=== PATIENT | male | born 1980 | race Caucasian/White ===

== ENCOUNTER 2020-11-15 13:38 | Inpatient (IN) | payer OTHER, SELFPAY ==
--- NOTE | ~2020-11-15 | XR_ITS ---
EXAMINATION: XR CHEST CLINICAL INFORMATION: Stroke symptoms COMPARISON: None TECHNIQUE: Frontal view of the chest was obtained. FINDINGS: No significant abnormality is noted involving the heart, lungs, mediastinum, bony thorax or soft tissues. XR/XR chest 1V IMPRESSION: Unremarkable examination.
--- NOTE | ~2020-11-15 | MR_ITS ---
EXAMINATION: MR BRAIN WITHOUT AND WITH CONTRAST CLINICAL INFORMATION: Question stroke. Slurred speech and facial droop. COMPARISON: Head CT from 11/15/2020. TECHNIQUE: Multiplanar, multisequence imaging of the brain was performed before and after the intravenous administration of 10 mL of Gadavist. FINDINGS: There is a focal triangular-shaped acute infarct in the anterior right basal ganglia and right paulson radiata. There is a small acute infarct posteriorly in the right paulson radiata at the same level. Small acute infarct visible in the posterior limb of the right internal capsule. Punctate acute infarcts visible in the posterior right parietal white matter. There are a few additional small acute infarcts in the right temporoparietal lobes. The ventricles are normal in size. No mass effect or midline shift is seen. No brain parenchymal signal abnormality is noted. No extra-axial fluid collections are seen. The brainstem and cerebellum are normal. On postcontrast imaging, there is no abnormal parenchymal or leptomeningeal enhancement. The gradient refocused acquisition demonstrates no pathologic magnetic susceptibility artifact to indicate underlying acute or chronic blood products. The craniovertebral junction, marrow signal, and midline structures are normal. The major intracranial flow voids at the level of the [place] of [place] are preserved. The dural venous sinus flow voids are maintained. The mastoid air cells and paranasal sinuses are well aerated. 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 No hemorrhagic conversion or large territorial infarction. No abnormal mass effect or pathologic enhancement. Imaging findings reported to Dr. Oliva at 8:58 PM on 11/15/2020.
--- NOTE | ~2020-11-15 | US_ITS ---
EXAMINATION: US VENOUS ULTRASOUND WITH DOPPLER LOWER EXTREMITY, BILATERAL CLINICAL INFORMATION: PFO on Echo COMPARISON: Venous Doppler lower extremity 06/30/2019, 11/06/2018 TECHNIQUE: Ultrasound of the deep veins is performed from the hip to the calf with compression sonography and color and pulse Doppler assessment. Spectral analysis with color-flow imaging is performed. FINDINGS: RIGHT: There is normal venous compression and respiratory variation and augmented flow. The visualized common femoral vein, superficial femoral vein, profunda femoral vein, popliteal vein, and the trifurcation region shows no evidence of deep venous thrombosis. There is no significant popliteal fossa cyst. LEFT: There is normal venous compression and respiratory variation and augmented flow. The visualized common femoral vein, superficial femoral vein, profunda femoral vein, popliteal vein, and the trifurcation region shows no evidence of deep venous thrombosis. There is no significant popliteal fossa cyst. If the patient's symptoms persist, followup ultrasound in 5 days 7 days might be of value to exclude proximal propagation from a non-visualized calf vein. US/US venous duplex LE BI IMPRESSION: No DVT demonstrated in the bilateral lower extremity.
--- NOTE | ~2020-11-15 | CT_ITS ---
EXAMINATION: CT ANGIOGRAM HEAD CT ANGIOGRAM NECK CLINICAL INFORMATION: Slurred speech. Left-sided facial droop. COMPARISON: CT head from 11/15/2020. TECHNIQUE: Initial noncontrast special needs nanny imaging of the head and neck was performed. Comparison is made with noncontrast head CT from earlier today. Test bolus sequences followed by intravenous administration 70 mL of Omnipaque 350. Helical imaging was performed in the axial plane from the aortic arch to the skull vertex. Delayed postcontrast imaging of the head was also performed. The data was processed at the manufacturing technologist's workstation for generation of MIP sequences. Angled MIPs and volume rendered reformatted images were also generated at an offline 3D workstation. Stenoses are assessed in accordance with NASCET criteria unless otherwise indicated. This CT examination was performed using dose optimization techniques as appropriate, variously including the following: *Automated exposure control. *Adjustment of mA and/or kV according to patient size (this includes techniques or standardized protocols for targeted exams where dose is matched to indication/reason for exam; i.e. extremities or head). *Use of iterative reconstruction technique. DLP: 1531 mGy-cm FINDINGS: CT Head: There is no evidence of acute intracranial hemorrhage or edematous territorial infarction. There is an age-indeterminate region of white matter hypoattenuation within the right centrum semiovale/paulson radiata. No additional parenchymal signal abnormalities. Dietz-white matter differentiation is preserved. The ventricles are normal in size and configuration. No evidence for obstructive hydrocephalus. No abnormal mass effect or midline shift. No extra-axial fluid collections. No pathologic intra-axial enhancement or regional oligemia. No acute soft tissue or osseous abnormalities. Mild mucosal thickening of the paranasal sinuses. The mastoid air cells and middle ear cavities are clear. Periapical lucency associated with the maxillary right 2nd molar. CT Neck: The thyroid gland and remaining cervical soft tissues are within normal limits. Straightening of the normal cervical lordosis. Moderate degenerative disc disease from C3-C6 with disc-osteophyte complex formation. Most notably a prominent disc/osteophyte complex at C5-C6 causes a degree of spinal canal stenosis. Facet and uncovertebral joint arthropathy leads to osseous encroachment on the neural foramina from C3-C7. CT Upper Chest: The visualized lung apices and upper mediastinum are within normal limits. Neck CTA: Aortic Arch: Normal contour and caliber. Two vessel branching pattern of the arch with left common carotid artery arising from the brachiocephalic trunk. Great Vessel Origins: No significant stenosis of the branch origins. Right Common Carotid Artery: Normal opacification without focal stenosis or occlusion. Cervical Right Internal Carotid Artery: Normal opacification without focal stenosis or occlusion. Left Common Carotid Artery: Normal opacification without focal stenosis or occlusion. Cervical Left Internal Carotid Artery: Normal opacification without focal stenosis or occlusion. Cervical Right Vertebral Artery: Normal opacification without focal stenosis or occlusion. Cervical Left Vertebral Artery: Mildly dominant. Normal opacification without focal stenosis or occlusion. Brain CTA: Intracranial Internal Carotid Arteries: Normal contrast opacification of the petrous, cavernous, paraophthalmic, and supraclinoid segments of the internal carotid arteries without focal stenosis. Right Anterior Cerebral Artery: Normal A1 segment. Normal opacification of the distal segments of the OLAYINKA. Left Anterior Cerebral Artery: Normal A1 segment. Normal opacification of the distal segments of the OLAYINKA. Anterior Communicating Artery: Normal. Right Middle Cerebral Artery: Normal opacification of the M1 segment of the MCA without focal stenosis or occlusion. Normal arborization of the distal segments. Left Middle Cerebral Artery: Normal opacification of the M1 segment of the MCA without focal stenosis or occlusion. Normal arborization of the distal segments. Right Vertebral Artery: Normal opacification of the V4 segment. The posterior inferior cerebellar artery is not well opacified; however, there is no CT evidence of acute occlusion. Left Vertebral Artery: Normal opacification of the V4 segment. The posterior inferior cerebellar artery is not well opacified; however, there is no CT evidence of acute occlusion. Basilar Artery: Normal opacification without focal stenosis or occlusion. Normal appearance of the proximal superior cerebellar arteries. Right Posterior Cerebral Artery: Normal P1 segment. Normal opacification of the distal segments of the TRAFFIC MANAGER. Left Posterior Cerebral Artery: Normal P1 segment. Normal posterior communicating artery. Normal opacification of the distal segments of the TRAFFIC MANAGER. Normal opacification of the superior sagittal, straight, transverse, and sigmoid sinuses. CT/CT angio head neck IMPRESSION: 1. No evidence of acute intracranial hemorrhage or edematous territorial infarction. Small region of age-indeterminate white matter hypoattenuation within the right centrum semiovale/paulson radiata. 2. CTA of the head and neck without proximal occlusion or flow-limiting stenosis. 3. Moderate multilevel degenerative spondyloarthropathy of the cervical spine. Most notably, there is a degree of spinal canal stenosis at C5-C6. This critical result was discussed with Dr. Veras at 17:05 on 11/15/2020 and it was ascertained that the content and urgency of the report was understood at the time of direct communication.
--- NOTE | ~2020-11-15 | CT_ITS ---
EXAMINATION: CT HEAD WITHOUT CONTRAST CLINICAL INFORMATION: Slurred speech. Left-sided facial droop. COMPARISON: None TECHNIQUE: Contiguous axial imaging was performed from the skull base to vertex without intravenous administration of contrast. This CT examination was performed using dose optimization techniques as appropriate, variously including the following: *Automated exposure control *Adjustment of mA and/or kV according to patient size (this includes techniques or standardized protocols for targeted exams where dose is matched to indication/reason for exam; i.e. extremities or head) *Use of iterative reconstruction technique DLP: 709 mGy-cm FINDINGS: There is no evidence of acute intracranial hemorrhage or edematous territorial infarction. No abnormal mass effect or midline shift is seen. Dietz to white matter differentiation is well preserved. No extra-axial fluid collections are identified. The ventricles are normal in size. There is no abnormal attenuation within the brain parenchyma. The osseous structures and soft tissues are normal. The mastoid air cells and visualized portions of the paranasal sinuses are well aerated. CT/CT head/brain wo con IMPRESSION: No CT evidence of acute intracranial pathology. Etiology of the patient's symptoms has not been determined. Further evaluation with CTA or MRI can be obtained as clinically warranted.
[2020-11-15 13:46] VITALS: BP 174/86; PULSE 101; RESP 18; TEMP 36.3; O2SAT 98; BMI 34.7
--- NOTE | 2020-11-15 14:11 | ECG_ITS ---
Test Reason : NEURO SYSMPTOMS Blood Pressure : / mmHG Vent. Rate : 089 BPM Atrial Rate : 089 BPM P-R Int : 138 ms QRS Dur : 084 ms QT Int : 368 ms P-R-T Axes : 039 032 025 degrees QTc Int : 447 ms Normal sinus rhythm Normal ECG No previous ECGs available Referred By: Kimberly Veras Electronically Signed By:MATI MOODY MD
--- NOTE | 2020-11-15 14:34 | ED.NEUROSD ---
HPI - Neuro Symptoms/Deficit General Chief Complaint: Neuro Symptoms/Deficit Stated Complaint: slurred speech - headache Time Seen by Provider: 11/15/20 14:01 Source: patient Mode of arrival: ambulatory Limitations: no limitations History of Present Illness HPI Narrative: 40 yo male here wtih R sided headache since yesterday but then noted upon awakening c/o L facial droop, slurring, diff swallowing choked while drinking on water and feeling unsteady woke at 8am symptoms present upon waking Onset (ago): hour(s) (8am) Location: speech, left face and dysarthria History of same: No Severity: moderate Quality: weak and constant Relieving factors: none Exacerbating factors: none Context: sudden onset On Anticoagulants: No Associated symptoms: headaches Treatments Prior to Arrival: none Related Data Home Medications Medication Instructions Recorded Confirmed loratadine 10 mg PO DAILY PRN 11/15/20 11/15/20 Allergies Allergy/AdvReac Type Severity Reaction Status Date / Time oxycodone [OXYCODONE] Allergy Intermediate itching Verified 11/15/20 13:45 Review of Systems Review of Systems: Constitutional : No Weight loss, No Fever, No Chills, No Fatigue, No Malaise ENT/Mouth : No sore throat, No Rhinorrhea Eyes: No Eye Pain, No Swelling, No Redness Cardiovascular : No Chest Pain, No SOB, No Dyspnea on Exertion, No Orthopnea, No Edema, No Palpitations Respiratory : No Cough, No Sputum, No Wheezing Gastrointestinal : No Nausea, No Vomiting, No Diarrhea, No Constipation, No abdominal Pain, No Hematochezia, No Melena Genitourinary : No Dysuria, No Urinary Frequency, No Hematuria, Musculoskeletal : No joint pain, No Myalgias, No Joint Swelling Skin : No Skin Lesions, No rash Neuro : pos Weakness, No Numbness, No Dizziness, pos Headache Psych : No Anxiety/Panic, No Depression Heme/Lymph: No Bruising, No Bleeding,No Lymphadenopathy Endocrine : No Polyuria, No Polydipsia All other systems reviewed and are negative [facility] Past Medical History Attestation statement: The following information was validated with the patient. Medical History (Updated 11/15/20 @ 16:52 by Kimberly Veras DO) Arthritis Back injury Surgical History (Updated 11/15/20 @ 13:48 by Josefina Zamarripa) History of orthopedic surgery Social History Social History (Updated 11/15/20 @ 16:55 by Kimberly Veras DO) Smoking Status: Former smoker Use of substances other than those prescribed or required for medical reasons: No Advance Directives: No Advance Directives Information Provided: No Physical Exam Vital Signs: Vital Signs: Last Vital Signs Temp 97.4 F 11/15/20 13:46 Pulse 86 11/15/20 15:21 Resp 20 11/15/20 15:21 BP 180/117 H 11/15/20 15:21 Pulse Ox 98 11/15/20 13:46 Body Mass Index 34.7 Appearance: Alert. Oriented X3. No acute distress. I feel like my brain and body are not matching up right now. Eyes: Pupils equal, round and reactive to light. ENT: Pharynx normal. Neck: Normal inspection. Neck supple. CVS: Normal heart rate and rhythm. Pulses normal. Respiratory: No respiratory distress. Breath sounds normal. Abdomen: Soft and non-tender. Skin: Skin warm and dry. Normal skin color. Normal skin turgor. Extremities: No lower extremity edema. No calf ttp Neuro: Oriented X 3. mild L lower facial droop and slurred speech forehead is spared No sensory deficit. appears to be slightly wobbly and off balance when walking Course Course Course Narrative: IV morphine for headache, CTA pending the patient has taken ticks off his dogs but no known tick bites he has forehead sparing and his facial droop does not seem significant enough to cause his dysathria and choking episodes with swallowing a lyme study was sent off call from Radiology 505pm - vessels look good, no acute findings at this time obvious on CTA will admit for MRI with and without to look for MS/stroke PO aspirin ordered MDM - Neuro Symptoms/Deficit MDM Narrative Medical decision making narrative: 40 yo male hx of arthritis comes in after headache yesterday R side woke up at 8am today with slurred speech/diff swallowing feels unsteady on his feet and L sided facial droop at this time he is HTNive and possibly has a history of this, at this time will need labs, CT head for ICH, CTA, lyme tests his dogs have had ticks, likely admit given concern for stroke vs transfer if hemorrhage noted, may need BP control in ED, he is presenting 6 hours after the onset of neuro symptoms he is not a candidate for tPA Lab Data Result diagrams: 11/15/20 14:57 11/15/20 14:57 Labs: Lab Results 11/15/20 11/15/20 11/15/20 Range/Units 14:57 14:57 14:57 WBC 7.5 (4.8-10.8) X10*3/uL RBC 5.05 (4.60-5.80) X10*6/uL Hgb 15.8 (14.0-18.0) g/dl Hct 46.4 (42-52) % MCV 91.9 (80-98) fL MCH 31.3 (27.0-33.0) pg MCHC 34.1 (31.0-36.0) g/dl RDW 12.0 (11.0-16.0) % Plt Count 385 (160-400) X10*3/uL MPV 9.3 L (9.4-12.4) fL Immature Gran % (Auto) 0.3 (0.0-0.4) % Neut % (Auto) 61.5 (45-73) % Lymph % (Auto) 28.7 (20-40) % [place] % (Auto) 7.8 (2-11) % Eos % (Auto) 1.3 (0-4) % Baso % (Auto) 0.4 (0-2) % Lymph # (Auto) 2.1 (1.2-4.9) X10*3/uL Monroe # (Auto) 0.6 (0.1-1.2) X10*3/uL Eos # (Auto) 0.1 (0.0-0.4) X10*3/uL Baso # (Auto) 0.0 (0.0-0.2) X10*3/uL Abs Immat Gran (auto) 0.02 (0.00-0.03) X10*3/uL Absolute Neuts (auto) 4.6 (2.0-8.3) X10*3/uL Absolute Nucleated RBC 0.000 (0.0-0.012) X10*3/uL Nucleated RBC % (auto) 0.0 (0.0-0.2) /100WBC PT 13.1 H (10.8-13.0) SEC INR 1.1 (0.9-1.1) APTT 38.9 H (24.1-38.0) SEC Sodium 137 (135-145) mmol/L Potassium 4.5 (3.3-5.1) mmol/L Chloride 100 (96-108) mmol/L Carbon Dioxide 26 (22-29) mmol/L Anion Gap 16 (12-20) BUN 16 (9-16) mg/dL Creatinine 1.28 (0.5-1.4) mg/dL Estim Creat Clear Calc 90.4 Estimated GFR > 60 Random Glucose 97 (60-115) mg/dL Calcium 9.6 (8.4-10.2) mg/dL Magnesium (1.6-2.6) mg/dL Total Bilirubin (0.0-1.0) mg/dL Direct Bilirubin (0.0-0.5) mg/dL AST (5-37) U/L ALT (0-40) U/L Alkaline Phosphatase (39-117) U/L Troponin I High Sens (<3.5-35.0) ng/L Total Protein (6.5-8.0) g/dL Albumin (3.5-5.0) g/dL TSH (0.32-4.0) uIU/mL COVID-19 (REED) (Negative) COVID-19 Clin Com 11/15/20 11/15/20 11/15/20 Range/Units 14:57 14:57 15:02 WBC (4.8-10.8) X10*3/uL RBC (4.60-5.80) X10*6/uL Hgb (14.0-18.0) g/dl Hct (42-52) % MCV (80-98) fL MCH (27.0-33.0) pg MCHC (31.0-36.0) g/dl RDW (11.0-16.0) % Plt Count (160-400) X10*3/uL MPV (9.4-12.4) fL Immature Gran % (Auto) (0.0-0.4) % Neut % (Auto) (45-73) % Lymph % (Auto) (20-40) % Monroe % (Auto) (2-11) % Eos % (Auto) (0-4) % Baso % (Auto) (0-2) % Lymph # (Auto) (1.2-4.9) X10*3/uL Monroe # (Auto) (0.1-1.2) X10*3/uL Eos # (Auto) (0.0-0.4) X10*3/uL Baso # (Auto) (0.0-0.2) X10*3/uL Abs Immat Gran (auto) (0.00-0.03) X10*3/uL Absolute Neuts (auto) (2.0-8.3) X10*3/uL Absolute Nucleated RBC (0.0-0.012) X10*3/uL Nucleated RBC % (auto) (0.0-0.2) /100WBC PT (10.8-13.0) SEC INR (0.9-1.1) APTT (24.1-38.0) SEC Sodium (135-145) mmol/L Potassium (3.3-5.1) mmol/L Chloride (96-108) mmol/L Carbon Dioxide (22-29) mmol/L Anion Gap (12-20) BUN (9-16) mg/dL Creatinine (0.5-1.4) mg/dL Estim Creat Clear Calc Estimated GFR Random Glucose (60-115) mg/dL Calcium (8.4-10.2) mg/dL Magnesium 1.9 (1.6-2.6) mg/dL Total Bilirubin 0.7 (0.0-1.0) mg/dL Direct Bilirubin 0.3 (0.0-0.5) mg/dL AST 37 (5-37) U/L ALT 61 H (0-40) U/L Alkaline Phosphatase 59 (39-117) U/L Troponin I High Sens 3.6 (<3.5-35.0) ng/L Total Protein 7.8 (6.5-8.0) g/dL Albumin 4.7 (3.5-5.0) g/dL TSH 1.03 (0.32-4.0) uIU/mL COVID-19 (REED) Negative (Negative) COVID-19 Clin Com See Note ECG Data Attestation: I personally reviewed and interpreted this ECG as follows: ECG interpretation date: 11/15/20 ECG interpretation time: 14:34 Interpretation: Rate: 89 Rhythm: NSR [place]: normal Normal P waves. Normal SRIRAM. Normal QRS complex. ST T wave : normal no ARMAAN qTC: normal prior studies: no acute ischemia The study has been interpreted contemporaneously by me. . NIH Stroke Scale Internal: Initial- Upon Arrival Level of Consciousness: Alert Level of Consciousness Questions: Answers both questions correctly Level of Consciousness Commands: Performs both tasks correctly Best Gaze: Normal Visual: No visual loss Facial Palsy: Minor paralyis Motor Arm (Right): No drift Motor Arm (Left): No drift Motor Leg (Right): No drift Motor Leg (Left): No drift Limb Ataxia: Absent Sensory: Normal Best Language: No aphasia Dysarthia: Mild to moderate dysarthria Extinction and Inattention: No abnormality Score: 2 Discharge Plan Discharge Clinical Impression: Facial weakness, Dysarthria HTN (hypertension) Qualifiers: Hypertension type: unspecified Qualified Code(s): I10 - Essential (primary) hypertension Patient Disposition: Admitted As Inpatient
[2020-11-15 15:05] LABS: MANUAL DIFF FLAG NO
[2020-11-15 15:07] LABS: Basophils Percent Auto 0.4 % (0-2); Eosinophils Absolute Auto 0.1 X10*3/uL (0.0-0.4); Eosinophils Percent Auto 1.3 % (0-4); Hematocrit 46.4 % (42-52); Hemoglobin 15.8 g/dl (14.0-18.0); Imm Gran Abs Auto 0.02 X10*3/uL (0.00-0.03); Imm Gran Pct Auto 0.3 % (0.0-0.4); Lymphocytes Absolute Auto 2.1 X10*3/uL (1.2-4.9); Lymphocytes Percent Auto 28.7 % (20-40); Mean Corpuscular HGB Conc 34.1 g/dl (31.0-36.0); Mean Corpuscular Hemoglobin 31.3 pg (27.0-33.0); Mean Corpuscular Volume 91.9 fL (80-98); Mean Platelet Volume 9.3 fL (9.4-12.4); Monocytes Absolute Auto 0.6 X10*3/uL (0.1-1.2); Monocytes Percent Auto 7.8 % (2-11); Neutrophils Absolute Auto 4.6 X10*3/uL (2.0-8.3); Neutrophils Percent Auto 61.5 % (45-73); Platelet Count 385 X10*3/uL (160-400); Red Blood Count 5.05 X10*6/uL (4.60-5.80); White Blood Count 7.5 X10*3/uL (4.8-10.8)
[2020-11-15 15:21] VITALS: BP 180/117; PULSE 86; RESP 20
[2020-11-15 15:23] LABS: INTERNATIONAL NORM RATIO 1.1 (0.9-1.1); Prothrombin Time 13.1 SEC (10.8-13.0)
[2020-11-15 15:28] LABS: Partial Thromboplastin Time 38.9 SEC (24.1-38.0)
[2020-11-15 15:31] LABS: COVID-19 Test Negative (Negative)
[2020-11-15 15:37] LABS: Anion Gap 16 (12-20); Blood Urea Nitrogen 16 mg/dL (9-16); Calcium 9.6 mg/dL (8.4-10.2); Carbon Dioxide 26 mmol/L (22-29); Chloride 100 mmol/L (96-108); Creatinine Clr Calc Pharmacy 90.4; Estimated Glomerular Filt Rate > 60; Glucose Random 97 mg/dL (60-115); Potassium 4.5 mmol/L (3.3-5.1); Sodium 137 mmol/L (135-145)
[2020-11-15 15:41] LABS: Alanine Aminotransferase 61 U/L (0-40); Albumin Level 4.7 g/dL (3.5-5.0); Alkaline Phosphatase 59 U/L (39-117); Aspartate Amino Transferase 37 U/L (5-37); Bilirubin Direct 0.3 mg/dL (0.0-0.5); Bilirubin Total 0.7 mg/dL (0.0-1.0); Magnesium 1.9 mg/dL (1.6-2.6); Total Protein 7.8 g/dL (6.5-8.0)
[2020-11-15 15:42] LABS: Troponin-I High Sensitivity 3.6 ng/L (<3.5-35.0)
[2020-11-15 16:01] LABS: Thyroid Stimulating Hormone 1.03 uIU/mL (0.32-4.0)
[2020-11-15] MEDS: iohexoL 350 MG/ML 100 ML INFUS..BTL IV (16:23)
--- NOTE | 2020-11-15 17:00 | MHC.STROKE ---
Addendum entered by Hoa Lew RN 11/17/20 14:13: I MET WITH PATIENT TODAY AND WE WALKED AROUND THE NURSING UNIT DISCUSSING HIS DIAGNOSIS. I LATER MET WITH HE AND HIS SO. THEY ARE GRATEFUL FOR THE CARE, WE DISCUSSED THE CHRISSY, POSSIBLE PFO AND HOW THAT CAUSES A STROKE. I REINFORCED THE PLAN. CARDIOLOGY IS CONSULTING [facility] ON OPTIONS. I WILL CONTINUE TO FOLLOW. Addendum entered by Hoa Lew RN 11/16/20 10:48: I MET WITH THE PATIENT AND HIS SO (GIRLFRIEND WHO IS AND DUE EARLY DECEMBER) TODAY AND WE DISCUSSED HIS STROKE DIAGNOSIS, I REVIEWED HIS MRI IMAGES, THE STROKE EDUCATION BOOKLET. HIS RISK FACTORS. HE DID SMOKE MOST OF HIS LIFE BUT QUIT A FEW MONTHS AGO. HTN, HLD, STRESS, ?ETOH, I DID SPEAK WITH DR MOODY AND HE WILL ALSO SEE HIM FOR ?EMBOLIC STROKE, ECHO WITH BUBBLE ORDERED, HE MAY NEED A CHRISSY, HYPERCOAG- WORK-UP. I DID SPEAK WITH DR SIN AND HE WILL BE SEEING HIM TODAY, WE DID DISCUSS POSSIBLE ANTICOAGULATION TX, CASE MANAGEMENT DID MENTION THAT HE STILL HAS INSURANCE. HE IS VERY STRESSED OUT AND ANXIOUS. I PROVIDED UPDATES ON THE PLAN OF CARE AND ANSWERED ALL OF HIS QUESTIONS. HE IS REQUESTING SPEECH TX AND I DID DISCUSS THIS WITH DR CHAO. I WILL CONTINUE TO FOLLOW. Original Note: 1338 WALK-IN WITH C/O LEFT SIDED DROOP, SLURRED SPEECH AND DIFFICULTY SWALLOWING. THIS STARTED YESTERDAY WITH A HEADACHE AND HE WOKE TODAY AT 0800 WITH THE LEFT DROOP, SPEECH AND DYSARTHRIA. CT DONE NO BLEED, CTA H/N DONE. HE SAID HE HAS DIFFICULTY WITH THE [place] [facility] [place] HE TRIED IT TWICE AND COULD NOT TOLERATE IT. HE WAS ABLE TO TOLERATE [facility] ON [address] IN [place] BECAUSE IT WAS LARGER. HE DOES NOT HAVE ANY HISTORY OF STROKE IN HIS FAMILY, HE HAS A HISTORY OF HTN, HE IS HYPERTENSIVE. HE ALSO HAS A DOG AND HAS BEEN EXPOSED TO TICKS. HE IS UNDER A GREAT DEAL OF STRESS, HE LOST HIS JOB OF 17 YEARS ON 11/08/20. HIS GIRLFRIEND IS 8 MONTHS AND WAS AT [facility] YESTERDAY FOR BLEEDING (SHE IS HOME NOW). I DID RELAY THE PLAN OF CARE TO HIM AND A FAMILY MEMBER AND ANSWERED ALL OF THEIR QUESTIONS. I WILL CONTINUE TO FOLLOW.
--- NOTE | 2020-11-15 17:14 | PM.IMHP ---
History of Present Illness Date of Service: 11/15/20 <Azul Bach NP - Last Filed: 11/16/20 08:21> Chief Complaint: Slurred speech and facial droop <Azul Bach NP - Last Filed: 11/16/20 08:21> 40 year old man presenting to the ED with slurred speech, facial droop and headache. Symptoms started yesterday morning upon awakening. He had some difficulty swallowing as well. He reported the headache on lor right side of his head but moved to the center. He reported recent stress of losing his job of 17 years one week ago and his fiance, whom is 33 weeks , hospitalized with labor type pains. He has no history of stroke in the past. He reportedly quit smoking 3 months ago and had been smoking approximately a day. He denies drug use or heavy alcohol use. Head CT showed no proximal occlusion, hemorrhage or territorial infarction. Labs initially within acceptable limits. Blood pressure was elevated with highest reading of 180/117. Patient's symptoms seem to improve and he reported that his slurred speech was much better. He had equal strength to upper and lower extremities and no noted facial droop. He was given full-dose aspirin in the ER. He will be admitted for further management and treatment of possible stroke. <Azul Bach NP - Last Filed: 11/16/20 08:21> Review of Systems Review of Systems: Denies any recent fever chills or decrease in appetite respiratory denies any shortness of breath coverage production cardiovascular is adjustment of any PND or edema gastrointestinal denies any dysphagia abdominal pain nausea vomiting or diarrhea genitourinary denies any dysuria frequency or hematuria musculoskeletal denies any joint pain or swelling neuropsych denies any weakness or seizures all other systems reviewed are negative <Azul Bach NP - Last Filed: 11/16/20 08:21> [facility] Medical History: Medical History Arthritis Back injury Medial meniscus tear <Azul Bach NP - Last Filed: 11/16/20 08:21> Surgical History: Surgical History History of orthopedic surgery <Azul Bach NP - Last Filed: 11/16/20 08:21> Social History: Social History Household Members: Spouse Housing: House Smoking Status: Former smoker Substance Use Type: Marijuana service: No Current occupational status: unemployed <Azul Bach NP - Last Filed: 11/16/20 08:21> Meds Allergies/Adverse reactions: Allergies Allergy/AdvReac Type Severity Reaction Status Date / Time oxycodone [OXYCODONE] Allergy Intermediate itching Verified 11/17/20 12:52 <Azul Bach NP - Last Filed: 11/16/20 08:21> Active Medications: Current Medications Generic Name Dose Route Start Last Admin Trade Name Freq PRN Reason Stop Dose Admin Pharmacy Consult 1 each 11/15/20 14:11 Consult Rx Perform Med Rec MISCELLANE ONCE PRN Consult order <Azul Bach NP - Last Filed: 11/16/20 08:21> Home medications: Home Medications Medication Instructions Recorded Confirmed Last Taken Type loratadine 10 mg PO DAILY PRN 11/15/20 11/15/20 11/15/20 History <Azul Bach NP - Last Filed: 11/16/20 08:21> Physical Exam Vital Signs and Narrative: Vital Signs: Last Vital Signs Temp 97.4 F 11/15/20 13:46 Pulse 86 11/15/20 15:21 Resp 20 11/15/20 15:21 BP 180/117 H 11/15/20 15:21 Pulse Ox 98 11/15/20 13:46 Body Mass Index 34.7 <Azul Bach NP - Last Filed: 11/16/20 08:21> Appearing in no acute distress head is normocephalic atraumatic eyes pupils are PERRLA sclera is anicteric mouth throat mucous membranes are intact and moist neck is supple no lymphadenopathy, no JVD noted lung sounds are clear to auscultation heart regular rate rhythm, clear S1, S2 positive bowel sounds, abdomen is soft, nontender neuro patient is alert x3, no focal deficits <Azul Bach NP - Last Filed: 11/16/20 08:21> Results Labs CBC and Chem 7: : 11/16/20 05:35 11/16/20 05:35 <Azul Bach NP - Last Filed: 11/16/20 08:21> Labs: Laboratory Results - last 24 hr 11/15/20 11/15/20 11/15/20 14:57 14:57 14:57 MCV 91.9 MCH 31.3 MCHC 34.1 RDW 12.0 Plt Count 385 MPV 9.3 L Immature Gran % (Auto) 0.3 Neut % (Auto) 61.5 Lymph % (Auto) 28.7 Emanuel % (Auto) 7.8 Eos % (Auto) 1.3 Baso % (Auto) 0.4 Lymph # (Auto) 2.1 Emanuel # (Auto) 0.6 Eos # (Auto) 0.1 Baso # (Auto) 0.0 Abs Immat Gran (auto) 0.02 Absolute Neuts (auto) 4.6 Absolute Nucleated RBC 0.000 Nucleated RBC % (auto) 0.0 PT 13.1 H INR 1.1 APTT 38.9 H Anion Gap 16 Estim Creat Clear Calc 90.4 Estimated GFR > 60 Random Glucose 97 Calcium 9.6 Magnesium Total Bilirubin Direct Bilirubin AST ALT Alkaline Phosphatase Troponin I High Sens Total Protein Albumin TSH COVID-19 (REED) COVID-19 [employer]Desk Com 11/15/20 11/15/20 11/15/20 14:57 14:57 15:02 MCV MCH MCHC RDW Plt Count MPV Immature Gran % (Auto) Neut % (Auto) Lymph % (Auto) Emanuel % (Auto) Eos % (Auto) Baso % (Auto) Lymph # (Auto) Emanuel # (Auto) Eos # (Auto) Baso # (Auto) Abs Immat Gran (auto) Absolute Neuts (auto) Absolute Nucleated RBC Nucleated RBC % (auto) PT INR APTT Anion Gap Estim Creat Clear Calc Estimated GFR Random Glucose Calcium Magnesium 1.9 Total Bilirubin 0.7 Direct Bilirubin 0.3 AST 37 ALT 61 H Alkaline Phosphatase 59 Troponin I High Sens 3.6 Total Protein 7.8 Albumin 4.7 TSH 1.03 COVID-19 (REED) Negative COVID-19 Clin Com See Note <Azul Bach NP - Last Filed: 11/16/20 08:21> Imaging Radiologist's Impressions: Impressions Head CT 11/15/20 14:11 IMPRESSION: No CT evidence of acute intracranial pathology. Etiology of the patient's symptoms has not been determined. Further evaluation with CTA or MRI can be obtained as clinically warranted. Chest X-Ray 11/15/20 14:12 IMPRESSION: Unremarkable examination. <Azul Bach NP - Last Filed: 11/16/20 08:21> Assessment and Plan (1) Stroke: Status: Acute <Azul Bach NP - Last Filed: 11/16/20 08:21> 40 year old man admitted with stroke like symptoms including slurred speech facial droop. He has no hx of stroke in the past and infact is only on claritin at home. He stated that he lost his job of 17 years this week and his fiance is 33 weeks and was in the hospital with labor type pains. Stroke. stroke like symptoms with left sided facial droop and slurred speech -MRI pending w/wo to also look for MS lesions. -Add echo if MRI positive -PT/OT -aspirin and statin Elevated blood pressure. No history of HTN. Keep BP elevated. -Add labetolol for SBP greater than 180 Full code Attending: Dr. Jones <Azul Bach NP - Last Filed: 11/16/20 08:21>
[2020-11-15] MEDS: Aspirin Enteric Coated 325 MG TABLET.DR PO (18:02)
[2020-11-15] MEDS: Morphine Sulfate 4 MG/ML CARTRIDGE IVPUSH (18:02)
[2020-11-15 18:37] LABS: Amphetamine Screen Urine Not Detected (Not Detect); Barbiturates, Urine Not Detected (Not Detect); Benzodiazepines Screen Urine Not Detected (Not Detect); Cannabinoid Screen Urine POSITIVE (Not Detect); Cocaine Screen Urine Not Detected (Not Detect); Opiate Screen Urine Not Detected (Not Detect); Phencyclidine Screen Urine Not Detected (Not Detect)
[2020-11-15 18:46] VITALS: BP 174/103; PULSE 80; RESP 20; TEMP 36.9; O2SAT 95
--- NOTE | 2020-11-15 19:35 | PC.NURSE ---
pt off unit to mri
[2020-11-15] MEDS: LORazepam 2 MG/ML VIAL 1 MG IVPUSH (19:40)
[2020-11-15] MEDS: Atorvastatin Calcium 80 MG TABLET PO (21:49)
[2020-11-15 23:01] VITALS: BP 142/90; PULSE 88; RESP 20; TEMP 36.5; O2SAT 97
[2020-11-15 23:48] VITALS: BP 138/83; PULSE 67; RESP 18; TEMP 36.2; O2SAT 92
[2020-11-16 03:42] VITALS: BP 156/91; PULSE 76; RESP 18; TEMP 36.4; O2SAT 97
[2020-11-16 06:29] LABS: MANUAL DIFF FLAG NO
[2020-11-16 06:49] LABS: Basophils Percent Auto 0.3 % (0-2); Eosinophils Absolute Auto 0.2 X10*3/uL (0.0-0.4); Eosinophils Percent Auto 2.9 % (0-4); Hematocrit 43.5 % (42-52); Hemoglobin 14.7 g/dl (14.0-18.0); Imm Gran Abs Auto 0.02 X10*3/uL (0.00-0.03); Imm Gran Pct Auto 0.3 % (0.0-0.4); Lymphocytes Percent Auto 34.2 % (20-40); Mean Corpuscular HGB Conc 33.8 g/dl (31.0-36.0); Mean Corpuscular Hemoglobin 31.1 pg (27.0-33.0); Mean Platelet Volume 9.8 fL (9.4-12.4); Monocytes Absolute Auto 0.6 X10*3/uL (0.1-1.2); Monocytes Percent Auto 10.1 % (2-11); Neutrophils Percent Auto 52.2 % (45-73); Platelet Count 347 X10*3/uL (160-400); Red Blood Count 4.73 X10*6/uL (4.60-5.80); Red Cell Distribution Width 11.9 % (11.0-16.0); White Blood Count 5.8 X10*3/uL (4.8-10.8)
[2020-11-16 07:22] LABS: Anion Gap 13 (12-20); Blood Urea Nitrogen 15 mg/dL (9-16); Calcium 8.8 mg/dL (8.4-10.2); Carbon Dioxide 25 mmol/L (22-29); Chloride 105 mmol/L (96-108); Cholesterol 206 mg/dL; Creatinine Clr Calc Pharmacy 111.3; Estimated Glomerular Filt Rate > 60; Glucose Random 97 mg/dL (60-115); HDL Cholesterol 52 mg/dL; LDL Cholesterol Calculated 127 mg/dl; Potassium 4.4 mmol/L (3.3-5.1); Sodium 139 mmol/L (135-145); Triglycerides 138 mg/dL
[2020-11-16 08:00] VITALS: BP 176/94; PULSE 78; RESP 19; TEMP 36.6; O2SAT 97
[2020-11-16 08:51] LABS: Lyme Abs Screen <0.90 index
[2020-11-16] MEDS: Aspirin Enteric Coated 81 MG TABLET.DR PO (09:05)
[2020-11-16 09:20] LABS: Estimated Average Glucose 103 mg/dL; Hemoglobin A1c % 5.2 %
--- NOTE | 2020-11-16 09:48 | HO.PM.IMPN ---
Subjective Subjective Date of Service: 11/16/20 Interval History: seen and examined marina is bedside pt reports no current PETERSON, fiance reports speech not back to normal yet d/w him re: time-line of symptoms. He tells me that Monday 11/13 he woke up with R eye pain, photophobia and PETERSON. Tuesday 11/14 his fiance tells me that he had slurred speech + PETERSON. Wednesday 11/15 he went to his parents place and noticed a facial droop. He reports tobacco use which he stopped 2 months ago. He reports he was previously hypertensive but his meds were stopped to interaction with his anti-inflammatory meds. He reports he only took antihypertensives about 1 week and stopped >1 year ago. Physical Exam Vital Signs: Vital Signs: Last Vital Signs Temp 97.8 F 11/16/20 08:00 Pulse 78 11/16/20 08:00 Resp 19 11/16/20 08:00 BP 176/94 H 11/16/20 08:00 Pulse Ox 97 11/16/20 08:00 Body Mass Index 34.7 Const: Other: General - no acute distress, appears comfortable Cardiovascular - regular rate and rhythm, S1-S2; NSR on telemonitor Lungs - normal respiratory effort, clear to auscultation bilaterally, no wheezing Abdomen - soft, nontender, no rebound or guarding Extremities - no edema bilaterally Neuro - awake and alert, oriented x 3; slight facial asymmetry; motor strength normal in b/l upper and lower extremities; Objective Data Current Medications Generic Name Dose Route Start Last Admin Trade Name Freq PRN Reason Stop Dose Admin Acetaminophen 650 mg 11/15/20 17:36 Acetaminophen 325 Mg Tablet PO Q6H PRN Pain, Mild (Pain Scale 1-3) Aspirin 81 mg 11/16/20 09:00 11/16/20 09:05 Aspirin Enteric Coated 81 Mg Tablet. PO 81 mg DAILY BRETT Administration Atorvastatin Calcium 80 mg 11/15/20 21:00 11/15/20 21:49 Atorvastatin Calcium 80 Mg Tablet PO 80 mg BEDTIME BRETT Administration Labetalol HCl 10 mg 11/15/20 18:06 Labetalol Hcl 100 Mg/20 Ml Vial IVPUSH Q6H PRN Sbp > 180 Pharmacy Consult 1 each 11/15/20 14:11 Consult Rx Perform Med Rec MISCELLANE ONCE PRN Consult order Labs CBC & Chem 7: 11/16/20 05:35 11/16/20 05:35 Assessment and Plan (1) Stroke: Status: Acute Assessment and Plan: 40 yo M who a PMH of HTN (not on meds), tobacco use disorder, obesity who presents to the hospital with complaints of L facial droop and is diagnosed with acute CVA. 1. Acute Ischemic Stroke multiple infarcts in the region of the R MCA risk factors include HTN (untreated), Tobacco use, Obesity, hyperlipidemia started on Aspirin and Statin -- continue both will need antihypertensvies -- will commence oral meds based on Nuero recs for BP goals will need further work up including hypercoag (ordered). Echo with bubble. Given his age, will involve cardiology for possible CHRISSY check A1C 2. Hypetension untreated will start oral meds once BP goals determined by neurology 3. HLD statin as been started 4. Tobacco use reports he has stopped last several weeks encouraged him to maintain cessation 5. Obesity diet, exercise and weight loss have been encouraged Full Code DVT pptx, Lovenox
--- NOTE | 2020-11-16 10:46 | PM.CNCAR ---
History of Present Illness History of Present Illness Date of Service: 11/16/20 Requesting physician: Bandar Figueroa Consult reason: other (Embolic CVA) Chief complaint: Stroke symptoms Narrative: Thank you for asking us to see Luis Eduardo in cardiology consultation today as he presented with CVA. By imaging it appears to be embolic CVA to multiple different vascular territories in both cerebral hemispheres. This raises a concern for embolic central source such as a heart and/or aorta. Patient presented with slurred speech and facial deviation. Subsequent workup revealing embolic CVA as above. No cardiac symptoms. Denies any symptoms of palpitations, chest pain, shortness of breath. He says he was diagnosed with hypertension about a year ago however is currently not taking any treatment for the same because of intolerance and adverse events after combination with his pain pills. Patient denies any history of sleep apnea. No prior cardiac history. He has lot of personal stress in his life as he lost his job recently and also his fiancee is having some related issues. Review of Systems Constitutional: Constitutional: Reports no additional constitutional complaints Cardiovascular: Cardiovascular: Reports no additional cardiovascular complaints Respiratory: Respiratory: Reports no additional respiratory complaints Gastrointestinal: Gastrointestinal: Reports no additional gastrointestinal complaints Genitourinary: Genitourinary: Reports no additional male genitourinary complaints Musculoskeletal: Musculoskeletal: Reports no additional musculoskeletal complaints Neurologic: Reports Abnormal speech present Comments: With facial deviation Psychiatric: Psychiatric: Reports anxiety Endocrine: Endocrine: Reports no additional endocrine complaints Hematologic/Lymphatic: Hematologic/Lymphatic: Reports no additional hematologic/lymphatic complaints Allergic/Immunologic: Allergic/Immunologic: Reports no additional allergic/immunologic complaints [facility] Past Medical History Medical History Arthritis Back injury Medial meniscus tear Surgical History Surgical History History of orthopedic surgery Social History Social History Household Members: Spouse Housing: House Do you presently have visiting nurse or other home services: No Smoking Status: Former smoker Smoking Quit Date: 07/23/20 Use of substances other than those prescribed or required for medical reasons: Yes Substance Use Type: Marijuana Substance Use Frequency: Occasionally Currently Displaying Signs/Symptoms of Drug Intoxication Withdrawal: No Have you been hit, kicked, punched, or otherwise hurt by someone within the past year? If so, by whom?: No Do you feel safe in your current relationship?: Yes Is there a partner from a previous relationship who is making you feel unsafe now?: No Are you made to feel afraid or neglected: No Advance Directives: No Advance Directives Information Provided: No Do you have thoughts of harming others: None Do you have a plan to hurt others: No Plan Recently lost weight without trying: No Meds Allergies Allergy/AdvReac Type Severity Reaction Status Date / Time oxycodone [OXYCODONE] Allergy Intermediate itching Verified 11/15/20 13:45 Active Medications: Current Medications Generic Name Dose Route Start Last Admin Trade Name Freq PRN Reason Stop Dose Admin Acetaminophen 650 mg 11/15/20 17:36 Acetaminophen 325 Mg Tablet PO Q6H PRN Pain, Mild (Pain Scale 1-3) Aspirin 81 mg 11/16/20 09:00 11/16/20 09:05 Aspirin Enteric Coated 81 Mg Tablet. PO 81 mg DAILY BRETT Administration Atorvastatin Calcium 80 mg 11/15/20 21:00 11/15/20 21:49 Atorvastatin Calcium 80 Mg Tablet PO 80 mg BEDTIME BRETT Administration Enoxaparin Sodium 40 mg 11/16/20 10:00 Enoxaparin Sodium 40 Mg/0.4 Ml Syringe SUBCUT Q24H [facility] Pharmacy Consult 1 each 11/15/20 14:11 Consult Rx Perform Med Rec MISCELLANE ONCE PRN Consult order Home Medications Medication Instructions Recorded Confirmed Last Taken Type loratadine 10 mg PO DAILY PRN 11/15/20 11/15/20 11/15/20 History Physical Exam Vital Signs: Vital Signs: Last Vital Signs Temp 97.8 F 11/16/20 08:00 Pulse 78 11/16/20 08:00 Resp 19 11/16/20 08:00 BP 176/94 H 11/16/20 08:00 Pulse Ox 97 11/16/20 08:00 Body Mass Index 34.7 Neuro: Speech: Abnormal speech present Results Labs and Meds Result diagrams: 11/16/20 05:35 11/16/20 05:35 Lab results: Laboratory Results - last 24 hr 11/15/20 11/15/20 11/15/20 14:57 14:57 14:57 WBC 7.5 RBC 5.05 Hgb 15.8 Hct 46.4 MCV 91.9 MCH 31.3 MCHC 34.1 RDW 12.0 Plt Count 385 MPV 9.3 L Immature Gran % (Auto) 0.3 Neut % (Auto) 61.5 Lymph % (Auto) 28.7 Carver % (Auto) 7.8 Eos % (Auto) 1.3 Baso % (Auto) 0.4 Lymph # (Auto) 2.1 Carver # (Auto) 0.6 Eos # (Auto) 0.1 Baso # (Auto) 0.0 Abs Immat Gran (auto) 0.02 Absolute Neuts (auto) 4.6 Absolute Nucleated RBC 0.000 Nucleated RBC % (auto) 0.0 PT INR APTT Sodium 137 Potassium 4.5 Chloride 100 Carbon Dioxide 26 Anion Gap 16 BUN 16 Creatinine 1.28 Estim Creat Clear Calc 90.4 Estimated GFR > 60 Random Glucose 97 Estimat Average Glucose Hemoglobin A1c % Calcium 9.6 Magnesium Total Bilirubin Direct Bilirubin AST ALT Alkaline Phosphatase Troponin I High Sens Total Protein Albumin Triglycerides Cholesterol LDL Cholesterol, Calc HDL Cholesterol TSH Urine Opiates Screen Ur Barbiturates Screen Ur Phencyclidine Scrn Ur Amphetamines Screen U Benzodiazepines Scrn Urine Cocaine Screen U Marijuana (THC) Screen Lyme Screen IgG & IgM <0.90 COVID-19 (REED) COVID-19 Clin Com 11/15/20 11/15/20 11/15/20 14:57 14:57 14:57 WBC RBC Hgb Hct MCV MCH MCHC RDW Plt Count MPV Immature Gran % (Auto) Neut % (Auto) Lymph % (Auto) Carver % (Auto) Eos % (Auto) Baso % (Auto) Lymph # (Auto) Carver # (Auto) Eos # (Auto) Baso # (Auto) Abs Immat Gran (auto) Absolute Neuts (auto) Absolute Nucleated RBC Nucleated RBC % (auto) PT 13.1 H INR 1.1 APTT 38.9 H Sodium Potassium Chloride Carbon Dioxide Anion Gap BUN Creatinine Estim Creat Clear Calc Estimated GFR Random Glucose Estimat Average Glucose Hemoglobin A1c % Calcium Magnesium 1.9 Total Bilirubin 0.7 Direct Bilirubin 0.3 AST 37 ALT 61 H Alkaline Phosphatase 59 Troponin I High Sens 3.6 Total Protein 7.8 Albumin 4.7 Triglycerides Cholesterol LDL Cholesterol, Calc HDL Cholesterol TSH 1.03 Urine Opiates Screen Ur Barbiturates Screen Ur Phencyclidine Scrn Ur Amphetamines Screen U Benzodiazepines Scrn Urine Cocaine Screen U Marijuana (THC) Screen Lyme Screen IgG & IgM COVID-19 (REED) COVID-19 Clin Com 11/15/20 11/15/20 11/16/20 15:02 17:27 05:35 WBC 5.8 RBC 4.73 Hgb 14.7 Hct 43.5 MCV 92.0 MCH 31.1 MCHC 33.8 RDW 11.9 Plt Count 347 MPV 9.8 Immature Gran % (Auto) 0.3 Neut % (Auto) 52.2 Lymph % (Auto) 34.2 Carver % (Auto) 10.1 Eos % (Auto) 2.9 Baso % (Auto) 0.3 Lymph # (Auto) 2.0 Carver # (Auto) 0.6 Eos # (Auto) 0.2 Baso # (Auto) 0.0 Abs Immat Gran (auto) 0.02 Absolute Neuts (auto) 3.0 Absolute Nucleated RBC 0.000 Nucleated RBC % (auto) 0.0 PT INR APTT Sodium Potassium Chloride Carbon Dioxide Anion Gap BUN Creatinine Estim Creat Clear Calc Estimated GFR Random Glucose Estimat Average Glucose Hemoglobin A1c % Calcium Magnesium Total Bilirubin Direct Bilirubin AST ALT Alkaline Phosphatase Troponin I High Sens Total Protein Albumin Triglycerides Cholesterol LDL Cholesterol, Calc HDL Cholesterol TSH Urine Opiates Screen Not Detected Ur Barbiturates Screen Not Detected Ur Phencyclidine Scrn Not Detected Ur Amphetamines Screen Not Detected U Benzodiazepines Scrn Not Detected Urine Cocaine Screen Not Detected U Marijuana (THC) Screen POSITIVE H Lyme Screen IgG & IgM COVID-19 (REED) Negative COVID-19 Clin Com See Note 11/16/20 11/16/20 05:35 05:35 WBC RBC Hgb Hct MCV MCH MCHC RDW Plt Count MPV Immature Gran % (Auto) Neut % (Auto) Lymph % (Auto) Carver % (Auto) Eos % (Auto) Baso % (Auto) Lymph # (Auto) Carver # (Auto) Eos # (Auto) Baso # (Auto) Abs Immat Gran (auto) Absolute Neuts (auto) Absolute Nucleated RBC Nucleated RBC % (auto) PT INR APTT Sodium 139 Potassium 4.4 Chloride 105 Carbon Dioxide 25 Anion Gap 13 BUN 15 Creatinine 1.04 Estim Creat Clear Calc 111.3 Estimated GFR > 60 Random Glucose 97 Estimat Average Glucose 103 Hemoglobin A1c % 5.2 Calcium 8.8 D Magnesium Total Bilirubin Direct Bilirubin AST ALT Alkaline Phosphatase Troponin I High Sens Total Protein Albumin Triglycerides 138 Cholesterol 206 LDL Cholesterol, Calc 127 HDL Cholesterol 52 TSH Urine Opiates Screen Ur Barbiturates Screen Ur Phencyclidine Scrn Ur Amphetamines Screen U Benzodiazepines Scrn Urine Cocaine Screen U Marijuana (THC) Screen Lyme Screen IgG & IgM COVID-19 (REED) COVID-19 Clin Com Imaging Radiologist's impression: Impressions Head CT 11/15/20 14:11 IMPRESSION: No CT evidence of acute intracranial pathology. Etiology of the patient's symptoms has not been determined. Further evaluation with CTA or MRI can be obtained as clinically warranted. Head/Neck CTA 11/15/20 14:11 IMPRESSION: 1. No evidence of acute intracranial hemorrhage or edematous territorial infarction. Small region of age-indeterminate white matter hypoattenuation within the right centrum semiovale/paulson radiata. 2. CTA of the head and neck without proximal occlusion or flow-limiting stenosis. 3. Moderate multilevel degenerative spondyloarthropathy of the cervical spine. Most notably, there is a degree of spinal canal stenosis at C5-C6. This critical result was discussed with Dr. Veras at 17:05 on 11/15/2020 and it was ascertained that the content and urgency of the report was understood at the time of direct communication. Chest X-Ray 11/15/20 14:12 IMPRESSION: Unremarkable examination. Brain MRI 11/15/20 20:20 IMPRESSION: Multiple scattered small acute infarcts in the right MCA vascular territory as described. No hemorrhagic conversion or large territorial infarction. No abnormal mass effect or pathologic enhancement. Imaging findings reported to Dr. Oliva at 8:58 PM on 11/15/2020. Assessment and Plan (1) Cerebrovascular accident, embolic: Status: Acute 40-year-old male with history of hypertension presents with CVA with appearance for embolic CVA from a central source. Requires aggressive workup for source of embolism. Should also get a thrombophilic workup. This was discussed with the hospitalist team. Patient should undergo transesophageal echocardiogram to assess for presence of PFO as well as cardiac and aortic source of embolism. Patient was explained the risks, benefits, alternatives 2nd opinion to procedure. He understands agrees. He is also consider given his risk factors for sleep apnea with his weight as well as hypertension to undergo high implantable loop recorder placement to rule out atrial fibrillation. Given embolic nature of stroke consider anticoagulation empirically in place of aspirin, discussed with Neurology about the same. Better control of blood pressure is indicated. Consider adding Diovan to target acutely blood pressure in the range of 140 systolic. Eventually in the long-term blood pressure goal less than 130/84. Patient is obviously very distressed and stressed about this medical diagnosis. He was reassured and explained the need further workup. He understands and agrees.
--- NOTE | 2020-11-16 11:35 | MHC.CM.PN ---
CM met with patient and at the bedside who reports he is independent and driving. CM completed HCP with patient who named his sister as HCP Lita [phone]. copy is on file. Discussed discharge plan, home no services. family will provide transport. CM will continue to follow for discharge needs.
[2020-11-16 11:59] VITALS: BP 169/84; PULSE 80; RESP 20; TEMP 36.5; O2SAT 97
[2020-11-16] MEDS: Enoxaparin Sodium 40 MG/0.4 ML SYRINGE SUBCUT (12:44)
--- NOTE | 2020-11-16 13:00 | CA_ITS ---
Transthoracic Echocardiogram Patient (Last, First, Middle): Luis Eduardo Alvarado J Gender: Male Date of : 1980 Age: 39 Procedure Date: 11/16/2020 Procedure Type: Transthoracic Echocardiogram Location: [facility] – [place] Height: 175.26 cm Weight: 106.6 kg BSA: 2.21 m2 Heart Rate: bpm BP: 176 / 94 mmHg Environmental Protection Specialist: ANTHONY Referring MD: Azul Bach NP Ventilating Expert: Fredy Shaikh MD Symptoms: stroke, use bubble to r/o PFO Study Quality: Fair ECG Rhythm: Sinus Conclusions: - 1. Shunting at atrial septal level most suggestive of PFO 2. Normal LV systolic function with grade 1 diastolic dysfunction 3. Normal cardiac valvular Doppler 4. Mildly dilated left atrium 5. Normal RV systolic pressure 6. No pericardial effusion Findings Left Ventricle Normal left ventricular size, thickness, and systolic function. The visually estimated ejection fraction is between 60-65%. Spectral Doppler is indicative of an impaired relaxation filling pattern. E/E prime ratio is <8, consistent with normal filling pressures. Evidence suggests grade I (mild) diastolic dysfunction. Right Ventricle Normal right ventricular cavity size and systolic function. Atria The left atrium is mildly dilated. Contrast study for right to left shunting is mildly positive. Contrast study for right to left shunting is severely positive with Valsalva maneuver. Patent foramen ovale detected using by contrast. There is shunt reversal with the release phase of the Valsalva maneuver. The right atrium is normal in size. Aortic Valve The aortic valve structure and function is likely normal. There is no aortic valve stenosis. There is no aortic valve regurgitation. Mitral Valve Normal mitral valve structure and function. There is trace mitral valve regurgitation. There is no mitral valve stenosis. Pulmonic Valve The pulmonic valve was not well visualized. Tricuspid Valve Likely normal tricuspid valve structure and function. There is trace tricuspid valve regurgitation. The right ventricular systolic pressure is normal. The right ventricular systolic pressure is 13 mmHg. Normal right atrial pressure. There is no evidence of pulmonary hypertension. Great Vessels All visible segments of the aorta are normal in size. The pulmonary artery was not well visualized. Venous The inferior vena cava is normal in size and collapses greater than 50% with inspiration. Pericardium/Pleural There is no evidence of pericardial effusion. Prior Study Comparison No prior study available for comparison. Recommendations, Care & Conclusions Consider a CHRISSY if clinically appropriate. Measurements 2D Linear Measurements Ao Root: 3.60 2.1-3.5 cm LVOT Diam: 2.10 3.0+(-)1.3 cm Mitral Valve MV Pk E: 0.42 MV PK A: 0.80 MV Decel Time: 130.00 E/A: 0.50 E'Lateral: 7.45 E'Medial: 5.32 E/E' Med: 7.80 E/E' Lat: 5.60 PHT: 38.00 MVA PHT: 5.79 Decel [place]: 3.20 Aortic Valve AoV Pk Abelardo: 1.33 AoV Mn Abelardo: 0.92 AoV VTI: 0.32 AoV Pk Grad: 7.00 Aov Mn Grad: 4.00 ELIZABETH Cont.VTI: 2.39 LVOT LVOT Pk Abelardo: 0.99 LVOT Mn Abelardo: 0.61 LVOT VTI: 0.22 LVOT Pk Grad: 4.00 LVOT Mn Grad: 2.00 LVOT Diam: 2.10 LVOT Area: 3.46 Diastolic Function MV Pk E: 0.42 MV Pk A: 0.80 E/A: 0.50 E'Medial: 5.32 E/E' Med: 7.80 E' Laterial: 7.45 E/E' Lat: 5.60 Tricuspid Valve TR Pk Abelardo: 1.57 TR Pk Grad: 10.00 RA Press: 3.00 RVSP: 13.00 Great Vessels Aorta Ao Root-2D: 3.60 2.0-3.7 cm Ao Asc: 3.40 2.1-3.4 cm Pulmonary Valve PV Pk Abelardo: 1.03 Peak PV Grad: 4.00 Updated in Other Vendor System with Status of Final Fredy Shaikh MD electronically signed on 11/16/2020 1:54:40 PM with status of Final
--- NOTE | 2020-11-16 13:42 | MHC.SL.SWA ---
Speech Pathologist Impression: Within Functional Limits Risk of Aspiration Due to: None Dysphasia Diet Status: No Change Liquid Consistency and Strategies for Safe Swallow: Liquid Intake Recommendation: Thin Liquid Intake Strategies: Unrestricted Solid Food Consistency: Dietary Recommendations: Regular Additional Modifications to Solid Foods: Oral Medication Intake: Whole with Liquid Compensatory Strategies and Precautions to be Taken for Safe Swallow: Sitting Upright (90 deg) Alternate Liquids/Solids Rate of Ingestion Change Supervision While Eating and Drinking for Safe Swallow: None Needed Foods to Avoid: Swallowing Recommended Treatments: Recommendation for Speech: NA:Typical Evaluation Comment: Pt stated concerns about speech intelligibility, as he feels his speech is not back to baseline. Pt's speech subjectively judged to be 100% intelligible to an unfamiliar yet trained listener. Frequency/Duration: Date Range for Service Req: Timeline to reassess: Needle Setter Clinican/Clinical Fellow: Yes: Camryn Damico M.A., CF-MONUMENTAL [facility]ON[facility] Supervisory Statement: I have reviewed and agree with the student/clinical fellow's documentation: Speech Language Pathologist:
[2020-11-16 15:34] VITALS: BP 146/87; PULSE 79; RESP 18; TEMP 36.6; O2SAT 96
--- NOTE | 2020-11-16 16:45 | PM.NEUROCN ---
History of Present Illness Data of Consult Service Date: 11/16/20 Primary Care Provider: Guy Becerra MD HPI Reason for consult: Transient facial weakness and dysarthria This is a 40-year-old man with a history of for hypertension who presented with the elevated blood pressure facial weakness and dysarthria which gradually improved. He has no previous history of stroke. He is not diabetic. His MRI showed multiple embolic infarcts in the right middle cerebral distribution. He has off history of palpitation chest pain or valvular heart disease and no known history of arrhythmia. There is no history of for drug abuse. Review of Systems Eyes: Eyes: Reports no additional eye complaints ENT: Reports system reviewed and no additional complaints, except as documented and Reports Normal hearing present Cardiovascular: Cardiovascular: Reports no additional cardiovascular complaints Respiratory: Respiratory: Reports no additional respiratory complaints Gastrointestinal: Gastrointestinal: Reports no additional gastrointestinal complaints Genitourinary: Genitourinary: Reports no additional male genitourinary complaints Musculoskeletal: Musculoskeletal: Reports no additional musculoskeletal complaints Integumentary/Breasts: Skin/Breast: Reports system reviewed and no additional complaints, except as docu Neurologic: Reports as per HPI and Reports Normal hearing present Psychiatric: Psychiatric: Reports as per HPI Endocrine: Endocrine: Reports no additional endocrine complaints Hematologic/Lymphatic: Hematologic/Lymphatic: Reports no additional hematologic/lymphatic complaints Allergic/Immunologic: Allergic/Immunologic: Reports no additional allergic/immunologic complaints [facility] Past Medical History Medical History Arthritis Back injury Medial meniscus tear Surgical History Surgical History History of orthopedic surgery Social History Social History Household Members: Spouse Housing: House Do you presently have visiting nurse or other home services: No Smoking Status: Former smoker Smoking Quit Date: 07/23/20 Use of substances other than those prescribed or required for medical reasons: Yes Substance Use Type: Marijuana Substance Use Frequency: Occasionally Currently Displaying Signs/Symptoms of Drug Intoxication Withdrawal: No Have you been hit, kicked, punched, or otherwise hurt by someone within the past year? If so, by whom?: No Do you feel safe in your current relationship?: Yes Is there a partner from a previous relationship who is making you feel unsafe now?: No Are you made to feel afraid or neglected: No Advance Directives: No Advance Directives Information Provided: No Do you have thoughts of harming others: None Do you have a plan to hurt others: No Plan Recently lost weight without trying: No service: No Current occupational status: unemployed Meds Allergies Allergy/AdvReac Type Severity Reaction Status Date / Time oxycodone [OXYCODONE] Allergy Intermediate itching Verified 11/15/20 13:45 Active Medications: Current Medications Generic Name Dose Route Start Last Admin Trade Name Freq PRN Reason Stop Dose Admin Acetaminophen 650 mg 11/15/20 17:36 Acetaminophen 325 Mg Tablet PO Q6H PRN Pain, Mild (Pain Scale 1-3) Aspirin 81 mg 11/16/20 09:00 11/16/20 09:05 Aspirin Enteric Coated 81 Mg Tablet. PO 81 mg DAILY BRETT Administration Atorvastatin Calcium 80 mg 11/15/20 21:00 11/15/20 21:49 Atorvastatin Calcium 80 Mg Tablet PO 80 mg BEDTIME BRETT Administration Enoxaparin Sodium 40 mg 11/16/20 10:00 11/16/20 12:44 Enoxaparin Sodium 40 Mg/0.4 Ml Syringe SUBCUT 40 mg Q24H BRETT Administration Pharmacy Consult 1 each 11/15/20 14:11 Consult Rx Perform Med Rec MISCELLANE ONCE PRN Consult order Home Medications Medication Instructions Recorded Confirmed Last Taken Type loratadine 10 mg PO DAILY PRN 11/15/20 11/15/20 11/15/20 History Physical Exam Vital Signs: Vital Signs: Last Vital Signs Temp 98 F 11/16/20 15:34 Pulse 79 11/16/20 15:34 Resp 18 11/16/20 15:34 BP 146/87 H 11/16/20 15:34 Pulse Ox 96 11/16/20 15:34 Body Mass Index 34.7 Const: General: cooperative, comfortable, no acute distress, well developed, alert and awake Nutritional Appearance: well nourished Orientation/consciousness: oriented to person, oriented to place and oriented to time Limitations: no limitations HENMT: Head: Yes normal to inspection, Yes normocephalic and Yes atraumatic Ears: hearing grossly normal bilaterally General nose exam: Normal external nose present Face and sinus: Yes normal facial exam Mouth: Normal oral and palatal mucosa present Eyes: General: appearance normal, both eyes and all related structures Visual Vázquez: normal visual vázquez by confrontation Alignment and Position: alignment normal Periorbital: periorbital findings normal Eyelids: Yes eyelids normal Conjunctivae: conjunctivae normal Sclerae: sclerae normal Corneas: corneas normal Pupils: Equal, round and reactive pupils present and Pupil accommodation reflex normal EOM: EOMs intact bilaterally Direct Ophthalmoscopy: normal light reflex Neck: Neck: Yes normal visual inspection, Yes full ROM and Yes no meningeal signs Thyroid: Thyroid normal Carotids: normal carotid upstroke and bounding pulses Chest: Chest palpation & inspection: normal inspection of the chest Resp: Effort & Inspection: normal respiratory effort Auscultation: clear to auscultation bilaterally Cardio: Rate: regular rate Rhythm: regular rhythm Heart sounds: S1 normal heart sound present and S2 normal heart sound present Peripheral pulses: Peripheral pulses 2+ throughout GI: Inspection: Yes normal to inspection Percussion: Yes normal to percussion Auscultation: normal bowel sounds Rectal Exam - Male: Yes deferred Back/Spine/Pelvis: Cervical Spine: normal cervical lordosis and cervical ROM normal Thoracic/Lumbar Spine: thoracic and lumbar spine normal to inspection Skin: General skin exam: no rashes or lesions noted Neuro: Other: Minimal weakness of the left triceps at 5 minus/5 otherwise normal strength General: oriented to person, oriented to place, oriented to time, gait normal, tone normal, moves all extremities, Normal light touch and pain sensation, no meningeal signs, no focal motor deficits, CN's II-XI intact bilaterally, normal sensation to monofilament and deep tendon reflexes 2+ bilaterally Cranial nerves: Yes CN's II-XII intact bilaterally, Yes Equal, round and reactive pupils present, Yes Bilaterally intact EOM present, Yes Nystagmus not present, Yes Normal facial strength present, Yes Midline tongue present, Yes Normal gag reflex present, Yes Symmetric palate elevation present, Yes Normal hearing present and Yes Ability to bilaterally rotate head present Cognition (Neuro): normal cognition Speech: Other speech findings present (Neuro) Gait exam (Neuro): Normal gait present Motor exam (neuro): 5/5 motor strength present throughout, Pronator motor function not present, no tremor noted, no asterixis, Motor fasciculations not present, Normal motor muscle tone present throughout and Motor abnormalities not present Sensory Exam: Bilaterally intact graphesthesia Deep tendon reflexes (DTR's): Right triceps reflex intensity grade: 2+, Left triceps reflex intensity grade: 2+, Rt Biceps (C5, C6): 2+, Left biceps reflex intensity grade: 2+, Right brachioradialis reflex intensity grade: 2+, Left brachioradialis reflex intensity grade: 2+, Right patellar reflex intensity grade: 2+, Left patellar reflex intensity grade: 2+, Right ankle reflex intensity grade: 2+ and Left ankle reflex intensity grade: 2+ Plantar Reflex Responses: downgoing: right, left and bilateral Coordination: [id number] test normal, [id number] test normal, tandem gait normal and Romberg test negative Pupils: Normal pupillary reactivity/response: bilateral Extrem: General: Yes normal to inspection, Yes normal exam except as noted and Yes no pedal edema Psych: Appearance: grossly normal Mental Status: mental status grossly normal Speech and movement: Normal speech and movement present and Clear speech present Affect: normal affect Attitude: cooperative Thought process: Normal thought process present Results Labs CBC & Chem 7: 11/16/20 05:35 11/16/20 05:35 Labs: Short CBC 11/16/20 Range/Units 05:35 WBC 5.8 (4.8-10.8) X10*3/uL Hgb 14.7 (14.0-18.0) g/dl Hct 43.5 (42-52) % Plt Count 347 (160-400) X10*3/uL BMP 11/16/20 05:35 Sodium 139 Potassium 4.4 Chloride 105 Carbon Dioxide 25 BUN 15 Creatinine 1.04 Calcium 8.8 D Assessment and Plan (1) Cerebrovascular accident, embolic: Problem details: Symptoms have resolved Status: Acute The pattern of embolic infarct suggests a central source of embolism either intermittent or paroxysmal atrial fibrillation or possibly a PFO. Would recommend CHRISSY and cardiac monitoring. If no arrhythmia is detected and no PFO is found then he should be considered a candidate for an implanted monitor. Start aspirin 81 mg a day. Lipid profile. CTA of head and neck are normal (2) Stroke: Status: Acute (3) HTN (hypertension): Qualifiers: Hypertension type: unspecified Qualified Code(s): I10 - Essential (primary) hypertension Problem details: Control of blood pressure Status: Acute
[2020-11-16 19:26] VITALS: BP 151/78; PULSE 78; RESP 20; TEMP 36.7; O2SAT 95
[2020-11-16] MEDS: Atorvastatin Calcium 80 MG TABLET PO (20:46)
[2020-11-16 23:44] VITALS: BP 145/92; PULSE 74; RESP 15; TEMP 36; O2SAT 96
[2020-11-17] VITALS (12 sets, daily range): BP systolic 138–172; BP diastolic 77–107; PULSE 75–101; RESP 14–20; TEMP 36.6–37.1; O2SAT 92–98
[2020-11-17] MEDS: Acetaminophen 325 MG TABLET 650 MG PO ×2 (03:06→17:05)
[2020-11-17] MEDS: Aspirin Enteric Coated 81 MG TABLET.DR PO (10:04)
--- NOTE | 2020-11-17 11:22 | HO.PM.IMPN ---
Subjective Subjective Date of Service: 11/17/20 Interval History: seen and examined awaiting CHRISSY denies any new neurological complaints ROS General - no fevers or chills Cardiovascular - no chest pain Respiratory - no shortness of breath or cough Abdominal- no abdominal pain, nausea, vomiting, diarrhea Physical Exam Vital Signs: Vital Signs: Last Vital Signs Temp 97.9 F 11/17/20 08:00 Pulse 76 11/17/20 08:00 Resp 20 11/17/20 08:00 BP 172/107 H 11/17/20 08:00 Pulse Ox 98 11/17/20 08:00 Body Mass Index 34.7 Const: Other: General - no acute distress, appears comfortable Cardiovascular - regular rate and rhythm, S1-S2; NSR on telemonitor Lungs - normal respiratory effort, clear to auscultation bilaterally, no wheezing Abdomen - soft, nontender, no rebound or guarding Extremities - no edema bilaterally Neuro - awake and alert, oriented x 3; remains neurolgoically stable Objective Data Current Medications Generic Name Dose Route Start Last Admin Trade Name Juanpabloq PRN Reason Stop Dose Admin Acetaminophen 650 mg 11/15/20 17:36 11/17/20 03:06 Acetaminophen 325 Mg Tablet PO 650 mg Q6H PRN Administration Pain, Mild (Pain Scale 1-3) Aspirin 81 mg 11/16/20 09:00 11/17/20 10:04 Aspirin Enteric Coated 81 Mg Tablet. PO 81 mg DAILY BRETT Administration Atorvastatin Calcium 80 mg 11/15/20 21:00 11/16/20 20:46 Atorvastatin Calcium 80 Mg Tablet PO 80 mg BEDTIME BRETT Administration Enoxaparin Sodium 40 mg 11/16/20 10:00 11/16/20 12:44 Enoxaparin Sodium 40 Mg/0.4 Ml Syringe SUBCUT 40 mg Q24H BRETT Administration Pharmacy Consult 1 each 11/15/20 14:11 Consult Rx Perform Med Rec MISCELLANE ONCE PRN Consult order Labs CBC & Chem 7: 11/16/20 05:35 11/16/20 05:35 Assessment and Plan (1) Stroke: Status: Acute Assessment and Plan: 40 yo M who a PMH of HTN (not on meds), tobacco use disorder, obesity who presents to the hospital with complaints of L facial droop and is diagnosed with acute CVA. 1. Acute Ischemic Stroke multiple infarcts in the region of the R MCA risk factors include HTN (untreated), Tobacco use, Obesity, hyperlipidemia started on Aspirin and Statin -- continue both will need anti-hypertensvies -- start after CHRISSY today will need further work up including hypercoag (ordered). a1c 5.2 no evidence of A. Fib on monitor since admission. Likely will need event monitor upon d/c. 2. PFO cardiology on the case d/w Dr. Shaikh today -- continue aspirin, may need eventual closer. Will need outpatient follow up 3. Hypetension likely oral norvasc 5mg post CHRISSY repeat BP @ 140/97 4. HLD statin as been started 5. Tobacco use reports he has stopped last several weeks encouraged him to maintain cessation 6. Obesity diet, exercise and weight loss have been encouraged Full Code DVT pptx, Lovenox dipos: anticipiate d/c home this afternoon after CHRISSY
[2020-11-17] MEDS: Lactated Ringers 1,000 ML 50 ML IV (12:45)
--- NOTE | 2020-11-17 13:00 | CA_ITS ---
Transesophageal Echocardiogram Patient (Last, First, Middle): Luis Eduardo Alvarado J Gender: Male Date of : 1980 Age: 40 Procedure Date: 11/17/2020 Procedure Type: Transesophageal Echocardiogram Location: [facility] – [place] Height: 152.4 cm Weight: kg Despatch Clerk: ANTHONY Referring MD: Fredy Shaikh MD Bowling Ball Finisher: Fredy Shaikh MD Symptoms: Embolic CVA Conclusion: ??? 1. Presence of PFO with a small shunt at rest 2. Normal LV systolic function with grade 1 diastolic dysfunction 3. Normal cardiac valves and Doppler 4. No intracardiac masses, vegetations or clots 5. Normal pericardium 6. Minimal atherosclerotic changes in the descending thoracic aorta Findings Procedure Information Consent was obtained prior to the procedure. Pre CHRISSY oral cavity was checked and revealed significant overcrowding. The adult 3D probe was passed with difficulty. Left Ventricle Normal left ventricular size, thickness, and systolic function. The visually estimated ejection fraction is between 60-65%. Spectral Doppler is indicative of an impaired relaxation filling pattern. E/E prime ratio is <8, consistent with normal filling pressures. Evidence suggests grade I (mild) diastolic dysfunction. Right Ventricle Normal right ventricular cavity size and systolic function. Atria The left atrium is likely dilated. Contrast study for right to left shunting is mildly positive. Patent foramen ovale detected using by color Doppler and contrast. There is evidence of a patent foramen ovale with left to right shunting. Left atrial appendage was free of any thrombus. The left atrial appendage ejection velocity was within normal limits. Left upper, right upper and right lower pulmonary vein drain normally into the left atrium. No left atrial masses or clots noted. The right atrium is normal in size. Right atrium was free of any clots or masses. IVC in SVC drain normally into the right atrium. Aortic Valve Normal aortic valve structure and function. There is no evidence of thickening of the aortic valve. There is no aortic valve stenosis. There is no evidence of a mass on the aortic valve. There is mild to moderate aortic valve regurgitation. Mitral Valve Normal mitral valve structure and function. There is no mitral valve prolapse. There is no mitral valve regurgitation. There is no mitral valve stenosis. There is no mitral leaflet elongation . There is no mass noted on the mitral valve. Pulmonic Valve The pulmonic valve is likely normal. There is no pulmonic valve regurgitation. Tricuspid Valve Normal tricuspid valve structure. There is trace tricuspid valve regurgitation. There is no evidence of a mass on the tricuspid valve. Tricuspid regurgitation envelope is inadequate for calculation of right ventricular systolic pressure. Great Vessels All visible segments of the aorta are normal in size. The pulmonary artery was not well visualized. Minimal to mild atherosclerotic changes noted in the descending thoracic aorta Venous The inferior vena cava is normal in size and collapses greater than 50% with inspiration. Pericardium/Pleural Normal pericardial structure. Updated by Fredy Shaikh on 03:26 PM with Status of Final Fredy Shaikh MD electronically signed on 11/17/2020 3:26:35 PM with status of Final
--- NOTE | 2020-11-17 13:27 | HO.ANESPROP2 ---
HPI - Anesthesia Eval Consult details Narrative: 40 yo male patient here for CHRISSY with bubble PMFSH Active Problems Active Problems: All Active Problems (Updated 11/16/20 @ 16:50 by Makenzie Finney MD) Cerebrovascular accident, embolic (Acute) Stroke (Acute) HTN (hypertension) (Acute) Facial weakness (Acute) Dysarthria (Acute) Past Medical History Medical History Arthritis Back injury Medial meniscus tear Family History Family history of problems with anesthesia: No Surgical History Surgical History History of orthopedic surgery Social History Social History Household Members: Spouse Housing: House Do you presently have visiting nurse or other home services: No Smoking Status: Former smoker Smoking Quit Date: 07/23/20 Use of substances other than those prescribed or required for medical reasons: No Substance Use Type: Marijuana Substance Use Frequency: Occasionally Currently Displaying Signs/Symptoms of Drug Intoxication Withdrawal: No Have you been hit, kicked, punched, or otherwise hurt by someone within the past year? If so, by whom?: No Do you feel safe in your current relationship?: Yes Is there a partner from a previous relationship who is making you feel unsafe now?: No Are you made to feel afraid or neglected: No Advance Directives: No Advance Directives Information Provided: No Advance Directives on File: No Do you have thoughts of harming others: None Do you have a plan to hurt others: No Plan Recently lost weight without trying: No service: No Current occupational status: unemployed Meds Allergies Allergy/AdvReac Type Severity Reaction Status Date / Time oxycodone [OXYCODONE] Allergy Intermediate itching Verified 11/17/20 12:52 Active Medications: Current Medications Generic Name Dose Route Start Last Admin Trade Name Freq PRN Reason Stop Dose Admin Acetaminophen 650 mg 11/15/20 17:36 11/17/20 03:06 Acetaminophen 325 Mg Tablet PO 650 mg Q6H PRN Administration Pain, Mild (Pain Scale 1-3) Aspirin 81 mg 11/16/20 09:00 11/17/20 10:04 Aspirin Enteric Coated 81 Mg Tablet. PO 81 mg DAILY BRETT Administration Atorvastatin Calcium 80 mg 11/15/20 21:00 11/16/20 20:46 Atorvastatin Calcium 80 Mg Tablet PO 80 mg BEDTIME BRETT Administration Enoxaparin Sodium 40 mg 11/16/20 10:00 11/17/20 11:27 Enoxaparin Sodium 40 Mg/0.4 Ml Syringe SUBCUT Not Given Q24H [facility] Pharmacy Consult 1 each 11/15/20 14:11 Consult Rx Perform Med Rec MISCELLANE ONCE PRN Consult order Home Medications Medication Instructions Recorded Confirmed Last Taken Type loratadine 10 mg PO DAILY PRN 11/15/20 11/15/20 11/15/20 History Exam Exam Date and Time: November 17, 2020 1327 Height,Weight and Vital Signs: Height 5 ft 9 in Weight 106.594 kg Last Vital Signs Temp 98.1 F 11/17/20 13:06 Pulse 80 11/17/20 13:06 Resp 14 11/17/20 13:06 BP 146/99 H 11/17/20 13:06 Pulse Ox 96 11/17/20 13:06 Pertinent Lab Results Pertinent Lab Results: Laboratory Tests 11/15/20 11/15/20 11/15/20 14:57 14:57 14:57 WBC 7.5 RBC 5.05 Hgb 15.8 Hct 46.4 MCV 91.9 MCH 31.3 MCHC 34.1 RDW 12.0 Plt Count 385 MPV 9.3 L Immature Gran % (Auto) 0.3 Neut % (Auto) 61.5 Lymph % (Auto) 28.7 [place] % (Auto) 7.8 Eos % (Auto) 1.3 Baso % (Auto) 0.4 Lymph # (Auto) 2.1 [place] # (Auto) 0.6 Eos # (Auto) 0.1 Baso # (Auto) 0.0 Abs Immat Gran (auto) 0.02 Absolute Neuts (auto) 4.6 Absolute Nucleated RBC 0.000 Nucleated RBC % (auto) 0.0 PT INR APTT Sodium 137 Potassium 4.5 Chloride 100 Carbon Dioxide 26 Anion Gap 16 BUN 16 Creatinine 1.28 Estim Creat Clear Calc 90.4 Estimated GFR > 60 Random Glucose 97 Estimat Average Glucose Hemoglobin A1c % Calcium 9.6 Magnesium Total Bilirubin Direct Bilirubin AST ALT Alkaline Phosphatase Troponin I High Sens Total Protein Albumin Triglycerides Cholesterol LDL Cholesterol, Calc HDL Cholesterol TSH Urine Opiates Screen Ur Barbiturates Screen Ur Phencyclidine Scrn Ur Amphetamines Screen U Benzodiazepines Scrn Urine Cocaine Screen U Marijuana (THC) Screen Lyme Screen IgG & IgM <0.90 Lyme Progressive Test TNP COVID-19 (REED) COVID-19 CipherMax Com 11/15/20 11/15/20 11/15/20 14:57 14:57 14:57 WBC RBC Hgb Hct MCV MCH MCHC RDW Plt Count MPV Immature Gran % (Auto) Neut % (Auto) Lymph % (Auto) [place] % (Auto) Eos % (Auto) Baso % (Auto) Lymph # (Auto) [place] # (Auto) Eos # (Auto) Baso # (Auto) Abs Immat Gran (auto) Absolute Neuts (auto) Absolute Nucleated RBC Nucleated RBC % (auto) PT 13.1 H INR 1.1 APTT 38.9 H Sodium Potassium Chloride Carbon Dioxide Anion Gap BUN Creatinine Estim Creat Clear Calc Estimated GFR Random Glucose Estimat Average Glucose Hemoglobin A1c % Calcium Magnesium 1.9 Total Bilirubin 0.7 Direct Bilirubin 0.3 AST 37 ALT 61 H Alkaline Phosphatase 59 Troponin I High Sens 3.6 Total Protein 7.8 Albumin 4.7 Triglycerides Cholesterol LDL Cholesterol, Calc HDL Cholesterol TSH 1.03 Urine Opiates Screen Ur Barbiturates Screen Ur Phencyclidine Scrn Ur Amphetamines Screen U Benzodiazepines Scrn Urine Cocaine Screen U Marijuana (THC) Screen Lyme Screen IgG & IgM Lyme Progressive Test COVID-19 (REED) COVID-19 [employer]ipherMax Com 11/15/20 11/15/20 11/16/20 15:02 17:27 05:35 WBC 5.8 RBC 4.73 Hgb 14.7 Hct 43.5 MCV 92.0 MCH 31.1 MCHC 33.8 RDW 11.9 Plt Count 347 MPV 9.8 Immature Gran % (Auto) 0.3 Neut % (Auto) 52.2 Lymph % (Auto) 34.2 [place] % (Auto) 10.1 Eos % (Auto) 2.9 Baso % (Auto) 0.3 Lymph # (Auto) 2.0 [place] # (Auto) 0.6 Eos # (Auto) 0.2 Baso # (Auto) 0.0 Abs Immat Gran (auto) 0.02 Absolute Neuts (auto) 3.0 Absolute Nucleated RBC 0.000 Nucleated RBC % (auto) 0.0 PT INR APTT Sodium Potassium Chloride Carbon Dioxide Anion Gap BUN Creatinine Estim Creat Clear Calc Estimated GFR Random Glucose Estimat Average Glucose Hemoglobin A1c % Calcium Magnesium Total Bilirubin Direct Bilirubin AST ALT Alkaline Phosphatase Troponin I High Sens Total Protein Albumin Triglycerides Cholesterol LDL Cholesterol, Calc HDL Cholesterol TSH Urine Opiates Screen Not Detected Ur Barbiturates Screen Not Detected Ur Phencyclidine Scrn Not Detected Ur Amphetamines Screen Not Detected U Benzodiazepines Scrn Not Detected Urine Cocaine Screen Not Detected U Marijuana (THC) Screen POSITIVE H Lyme Screen IgG & IgM Lyme Progressive Test COVID-19 (REED) Negative COVID-19 Clin Com See Note 11/16/20 11/16/20 05:35 05:35 WBC RBC Hgb Hct MCV MCH MCHC RDW Plt Count MPV Immature Gran % (Auto) Neut % (Auto) Lymph % (Auto) [place] % (Auto) Eos % (Auto) Baso % (Auto) Lymph # (Auto) [place] # (Auto) Eos # (Auto) Baso # (Auto) Abs Immat Gran (auto) Absolute Neuts (auto) Absolute Nucleated RBC Nucleated RBC % (auto) PT INR APTT Sodium 139 Potassium 4.4 Chloride 105 Carbon Dioxide 25 Anion Gap 13 BUN 15 Creatinine 1.04 Estim Creat Clear Calc 111.3 Estimated GFR > 60 Random Glucose 97 Estimat Average Glucose 103 Hemoglobin A1c % 5.2 Calcium 8.8 D Magnesium Total Bilirubin Direct Bilirubin AST ALT Alkaline Phosphatase Troponin I High Sens Total Protein Albumin Triglycerides 138 Cholesterol 206 LDL Cholesterol, Calc 127 HDL Cholesterol 52 TSH Urine Opiates Screen Ur Barbiturates Screen Ur Phencyclidine Scrn Ur Amphetamines Screen U Benzodiazepines Scrn Urine Cocaine Screen U Marijuana (THC) Screen Lyme Screen IgG & IgM Lyme Progressive Test COVID-19 (REED) COVID-19 Clin Com Narrative Narrative: Reports presentation of stroke as slurring of speech, inability to swallow and facial drooping most of which have resolved. Airway Mallampati Class: III TM Dist: >3cm Neck ROM: Full Heart: RRR Lungs: CTAB Assessment and Plan Assessment Anesthesia Assessment: Anesthesia Plan Discussed and Chart Reviewed Final Anesthetic Review NPO: Yes ASA Class: III Final Preanesthetic Review: No Changes in Pt Med Stat, Meds/Allgs Chart Reviewed, Consent Obtained/Reviewed and Anes Risks/Benef Reviewed Patient Risk: High Procedure Risk: Intermediate Assessment/Block/Sedation in SS: Assess/Block/Sedation-SS Anesthetic Plan Anesthetic Plan: MAC: (General back up) Disposition: Inp. Admit - Standard Bed
--- NOTE | 2020-11-17 13:38 | MHC.CM.PN ---
Patient's discharge plan is home no services with a possible discharge date of today after CHRISSY procedure. Family will be able to provide transport. CM will continue to follow patient for discharge needs.
--- NOTE | 2020-11-17 16:08 | PM.PNCARD ---
Subjective Subjective Date of Service: 11/17/20 Principal diagnosis: Embolic CVA Interval history: Patient underwent transesophageal echocardiogram which confirms finding of PFO with small tunnel-like present at the superior rim. Overall no intracardiac thrombi, masses or vegetations. Ascending and arch of aorta do not have any significant protruding plaques. No other new symptoms. Review of Systems Constitutional: Reports no additional constitutional complaints Cardiovascular: Reports no additional cardiovascular complaints Respiratory: Reports no additional respiratory complaints Gastrointestinal: Reports no additional gastrointestinal complaints Musculoskeletal: Reports no additional musculoskeletal complaints Psychiatric: Reports no additional psychiatric complaints Endocrine: Reports no additional endocrine complaints Physical Exam Vital Signs: Last Vital Signs Temp 98.3 F 11/17/20 15:41 Pulse 82 11/17/20 15:41 Resp 15 11/17/20 15:41 BP 155/92 H 11/17/20 15:41 Pulse Ox 97 11/17/20 15:41 Body Mass Index 34.7 Const General: cooperative, comfortable, alert and awake Nutritional Appearance: obese Orientation/consciousness: patient oriented x3 Neck Neck: Yes trachea midline, Yes supple and Yes no JVD Resp Effort & Inspection: normal respiratory effort Auscultation: clear to auscultation bilaterally Cardio Jugular venous distension: no JVD Palpation: normal PMI Rate: regular rate Rhythm: regular rhythm Heart sounds: S1 normal heart sound present and S2 normal heart sound present Skin General skin exam: no rashes or lesions noted Neuro General: patient oriented x3 and no focal motor deficits Extrem General: Yes no clubbing, cyanosis or edema Psych Appearance: grossly normal Results Labs and Meds Result diagrams: 11/16/20 05:35 11/16/20 05:35 Imaging Radiologist's impression: Impressions Venous Duplex 11/16/20 16:10 IMPRESSION: No DVT demonstrated in the bilateral lower extremity. Progress Note: A&P Assessment and plan (1) Cerebrovascular accident, embolic: Problem details: Symptoms have resolved Status: Acute Assessment and Plan: Embolic CVA any young man with history of hypertension with noted with noted PFO. Hypercoagulable workup is is pending. DVT workup is negative. Will hook him up for a cardiac event monitor as required for 30 days to rule out any incidental atrial fibrillation that may change therapy. Otherwise his RoPE score is 7 and would be considered a candidate for PFO closure. Will refer him to [facility] for the same. Agree with addition of Norvasc 5 mg regimen. Also agree with aspirin and statin therapy. He needs aggressive lifestyle modification with weight loss program. Will follow up in the clinic in 6 weeks time Fall Risk Details Current Medications: Current Medications Generic Name Dose Route Start Last Admin Trade Name Freq PRN Reason Stop Dose Admin Acetaminophen 650 mg 11/15/20 17:36 11/17/20 03:06 Acetaminophen 325 Mg Tablet PO 650 mg Q6H PRN Administration Pain, Mild (Pain Scale 1-3) Aspirin 81 mg 11/16/20 09:00 11/17/20 10:04 Aspirin Enteric Coated 81 Mg Tablet. PO 81 mg DAILY BRETT Administration Atorvastatin Calcium 80 mg 11/15/20 21:00 11/16/20 20:46 Atorvastatin Calcium 80 Mg Tablet PO 80 mg BEDTIME BRETT Administration Enoxaparin Sodium 40 mg 11/16/20 10:00 11/17/20 11:27 Enoxaparin Sodium 40 Mg/0.4 Ml Syringe SUBCUT Not Given Q24H BRETT Lactated Ringer's 1,000 mls @ 50 mls/hr 11/17/20 13:45 11/17/20 12:45 Lr IV 50 mls/hr .Q20H BRETT Administration Ondansetron HCl 4 mg 11/17/20 15:46 Ondansetron Hcl 4 Mg/2 Ml Vial IVPUSH ONCE PRN Nausea and Vomiting Pharmacy Consult 1 each 11/15/20 14:11 Consult Rx Perform Med Rec MISCELLANE ONCE PRN Consult order Time Spent With Patient Time: Total time spent is greater than 50% in coordination of care (as documented) at patient's floor/unit and/or counseling patient: Time with patient: 25 - 35 minutes
--- NOTE | 2020-11-17 16:44 | P.DS_ITS ---
DS: Providers Provider Date of Service: 11/17/20 Date of admission: 11/15/20 17:36 Primary care physician: Guy Becerra MD Consults: 11/15/20 17:36 Consult to Neurology Routine Consulting Provider: [facility] Reason for consultation: slurred speech and facial droop Has provider been notified: No 11/16/20 09:42 Consult to Cardiology Routine Consulting Provider: Fredy Shaikh Reason for consultation: stroke, needs CHRISSY DS: Diagnosis Discharge Diagnosis (1) Acute embolic stroke: Status: Acute (2) HTN (hypertension): Status: Acute (3) Obesity: Status: Acute (4) Hyperlipidemia: Status: Acute DS: Medications Discharge Medications Home Medications: Home Medications Medication Instructions Recorded Confirmed loratadine 10 mg PO DAILY PRN 11/15/20 11/15/20 Previous Rx's Medication Instructions Recorded amlodipine [Norvasc] 5 mg PO DAILY #30 tab 11/17/20 aspirin 81 mg PO DAILY #30 tab 11/17/20 atorvastatin 80 mg PO BEDTIME #30 tab 11/17/20 DS: Summary Hospital Course Hospital Course: Patient presented with signs and symptoms of acute stroke. his CT head was negative for acute bleed and his CTA did not show any occlusion in the head and neck. MRI confirmed diagnosis with multiple scattered small acute infarcts in the right MCA vascular territory. He underwent further stroke workup including TTE with bubble study which was positive for PFO. He subsequently underwent CHRISSY which confirmed PFO and was negative for left atrial appendage clot. He had a hypercoagulable workup ordered and pending at the time of discharge. His DVT studies were negative. He remained in sinus rhythm on telemetry for the duration of his hospitalization. He was evaluated by Neurology and Cardiology. He was started on Norvasc 5 mg daily, aspirin 81 mg and Lipitor 80 mg. he will follow- up with Cardiology as an outpatient for a 30 day event monitor and at this time appears that he will likely be a candidate for PFO closure, which will be determined as an outpatient. . He has been educated on diet, weight loss and exercise. He has been advised to continue to remain off tobacco use. He is to follow up with cardiology and PCP. Time Spent with Patient Time attestation: Total time spent providing and/or coordinating discharge services: Discharge coordination time: Greater than 30 minutes Quality: Stroke Pt Provided Written Stroke Discharge Instructions: Patient given written information Physical Exam Vital Signs: Vital Signs: Last Vital Signs Temp 98.3 F 11/17/20 15:41 Pulse 82 11/17/20 15:41 Resp 15 11/17/20 15:41 BP 155/92 H 11/17/20 15:46 Pulse Ox 97 11/17/20 15:41 Body Mass Index 34.7 Const: Other: General - no acute distress, appears comfortable Cardiovascular - regular rate and rhythm, S1-S2 Lungs - normal respiratory effort, clear to auscultation bilaterally, no wheezing Abdomen - soft, nontender, no rebound or guarding Extremities - no edema bilaterally Neuro - awake and alert, oriented x 3 No dysarthria appreciated, no weakness in the bilateral upper or lower extremities. No sensory deficits appreciated. Left-sided facial droop has improved significantly. Discharge Plan Discharge Patient Disposition: Home, Self-Care Discharge Diagnosis: Acute CVA, PFO Referrals: Guy Becerra MD [Primary Care Provider] - 1 Week Fredy Shaikh MD [Physician] - 1 Week (Call office for follow up if you do not hear from the clinic) Discharge Medications: New atorvastatin 80 mg Tablet 80 mg PO BEDTIME Qty: 30 RF: 0 aspirin 81 mg Tablet,Delayed Release (Dr/Ec) 81 mg PO DAILY Qty: 30 RF: 0 amlodipine [Norvasc] 5 mg tablet 5 mg PO DAILY Qty: 30 RF: 0 Continued loratadine 10 mg Tablet 10 mg PO DAILY PRN (Reason: Allergy Symptoms) RF: 0 Discharge Orders: Discharge Order (Routine); Ordered 11/17/20 Ordered By: Bandar Figueroa Diet: advance to usual diet, low fat, low cholesterol and low salt diet Activity on Discharge: As tolerated Stand Alone Forms: Patient Portal Discharge page Care Plan Goals: To stay healthy and out of the hospital. Health Concerns: Stroke PFO (Patent foramen ovale) Hypertension Elevated cholesterol Plan of Treatment: Stroke - Take aspirin and Lipitor. You will be followed by the cardiology clinic for a 30 day Heart Monitor. If you have ANY new symptoms, please return to the emergency room IMMEDIATELY. PFO (Patent foramen ovale) - you will be followed by the cardiology clinic for further care. Hypertension - Take Norvasc Elevated cholesterol - Take lipitor, eat a low cholesterol diet Assessment: 40 yo M admitted for acute CVA. Found to have PFO. Underwent CHRISSY. Hypercoag. work up ordered. Will need event monitor.
[2020-11-17] MEDS: amLODIPine Besylate 5 MG TABLET PO (17:05)
[2020-11-17 17:46] LABS: Homocysteine 9.7 umol/L (<11.4)
[2020-11-17 21:47] LABS: Cardiolipin IgG Ab <14 GPL; Cardiolipin IgM Ab <12 MPL
[2020-11-19 19:11] LABS: Anti-Thrombin III Antigen 87 % (80-120)
[2020-11-19 22:43] LABS: Protein C Activity 110 % (70-180); Protein S Activity rflx Tot&Fr 117 % (70-150)
[2020-11-22 21:12] LABS: Factor V Leiden NEGATIVE
[2020-11-23 14:51] LABS: Prothrombin 20210A NEGATIVE
== END 2020-11-17 17:17 | disposition home or self-care (01) | DRG 65 ==
LOC: HO.ED 17:08 → HO.EDOVER 18:47 → HO.IMC 19:45
PROVIDERS: Internal Medicine Cardiovascular Disease; Nurse Practitioner Acute Care; Admitting Provider Internal Medicine; Emergency Provider Emergency Medicine; PCP Internal Medicine; Visit Provider Family Medicine
PROC: (CPT 93312; principal; 2020-11-17 13:30)
DX: I63.511 Cerebral infarction due to unspecified occlusion or stenosis of right middle cerebral artery (principal); Q21.1 Atrial septal defect; R29.702 NIHSS score 2; I10 Essential (primary) hypertension; E78.5 Hyperlipidemia, unspecified; R29.810 Facial weakness; R47.81 Slurred speech; F17.210 Nicotine dependence, cigarettes, uncomplicated; Z71.6 Tobacco abuse counseling; E66.9 Obesity, unspecified; Z68.34 Body mass index [BMI] 34.0-34.9, adult; Z20.822 Contact with and (suspected) exposure to COVID-19; Z79.82 Long term (current) use of aspirin; Z79.899 Other long term (current) drug therapy
CPT/HCPCS: 36415; 70450; 70496; 70498; 70553; 71045; 80048; 80061; 80076; 80307; 81240; 81241; 83036; 83090; 83735; 84443; 84484; 85025; 85301; 85302; 85303; 85305; 85306; 85610; 85730; 86147; 86617; 86618; 87635; 92610; 93005; 93306; 93312; 93970; 96374; 96375; 97161; 97165; 99284; 99285; A9585; J0330; J1650; J2060; J2250; J2270; J2405; J3010; Q9957; Q9967

== ENCOUNTER → 2020-12-23 14:03 | Outpatient (REF) | payer OTHER, SELFPAY ==
--- NOTE | 2020-12-23 14:08 | HM_ITS ---
INDICATION: Unspecified atrioventricular block. INTERPRETATION: The patient was hooked up with a cardiac event monitor from 12/23/2020 to 01/22/2021 for a total period of 30 days. FINDINGS: Baseline rhythm was normal sinus rhythm, varying from 81 beats per minute to 125 beats per minute. There were no arrhythmias noted. There were no pauses or AV block noted. The patient did not report any symptoms. CONCLUSION: Cardiac event monitor is remarkable for: 1. Baseline normal sinus rhythm with no arrhythmias. 2. No patient reported symptoms. Fredy Shaikh MD NRS/MODL / [id number]
== END ==
LOC: HO.CARD 14:03
PROVIDERS: Visit Provider Internal Medicine
DX: I63.9 Cerebral infarction, unspecified (principal); R29.810 Facial weakness
CPT/HCPCS: 93270

== ENCOUNTER 2021-02-24 05:16 | Inpatient (IN) | payer OTHER, SELFPAY ==
[2021-02-24] VITALS (25 sets, daily range): BP systolic 70–150; BP diastolic 35–96; PULSE 64–107; RESP 13–22; TEMP 32.2–38; O2SAT 92–100; BMI 32.5
--- NOTE | ~2021-02-24 | XR_ITS ---
EXAMINATION: XR CHEST CLINICAL INFORMATION: Central line placement COMPARISON: Earlier on same day TECHNIQUE: AP portable view of the chest was obtained. FINDINGS: Endotracheal tube tip is seen approximately 3 cm above the mandeep. Enteric tube is seen traversing below the diaphragm. Right internal jugular central venous catheter seen in place with tip at the caval atrial junction. No pneumothorax is seen. No pleural effusion. Heart normal size. No evidence of pulmonary edema. There are some patchy regions of density seen within the upper lobes bilaterally as well as in the retrocardiac region. XR/XR chest 1V IMPRESSION: Catheters and tubes in position as described. Bilateral patchy regions of airspace disease.
--- NOTE | ~2021-02-24 | CT_ITS ---
EXAMINATION: CT HEAD WITHOUT CONTRAST (STROKE PROTOCOL) CLINICAL INFORMATION: Unresponsive. History of stroke. COMPARISON: MRI brain dated 11/15/2020 TECHNIQUE: Contiguous axial imaging was performed from the skull base to vertex without intravenous administration of contrast. This CT examination was performed using dose optimization techniques as appropriate, variously including the following: *Automated exposure control *Adjustment of mA and/or kV according to patient size (this includes techniques or standardized protocols for targeted exams where dose is matched to indication/reason for exam; i.e. extremities or head) *Use of iterative reconstruction technique DLP: 896 mGy-cm FINDINGS: No acute transcortical or edematous infarcts. Interval evolution of the infarct within the right paulson radiata and posterior limb of the right internal capsule. The additional small infarcts within the right MCA territory seen previously are not evident on CT. No intracranial hemorrhage or extra-axial collection. No mass, mass effect or herniation pattern. Ventricular system normal in size and configuration. The calvarium appears intact. There is no pneumocephalus or orbital emphysema. The visualized sinuses and middle ears and mastoid air cells show no significant mucosal thickening. There are no air-fluid levels. CT/CT head for stroke IMPRESSION: No acute intracranial pathology. Chronic right paulson radiata and right internal capsule lacunar infarcts. This critical result was discussed with Dr Carpenter at 02/24/2021 6:07 AM and it was ascertained that the content and urgency of the report was understood at the time of direct communication.
--- NOTE | ~2021-02-24 | XR_ITS ---
EXAMINATION: XR CHEST CLINICAL INFORMATION: Unresponsive. Intubated. COMPARISON: 11/15/2020 TECHNIQUE: Frontal view of the chest was obtained. FINDINGS: Endotracheal tube terminates 2.5 cm above the mandeep. There are patchy opacities within the upper lungs bilaterally, right greater than left. No pleural effusion or pneumothorax. Normal heart size and pulmonary vascularity. No pneumothorax. No acute or suspicious osseous abnormalities. XR/XR chest 1V IMPRESSION: Bilateral upper lung patchy airspace opacities suspicious for multifocal pneumonia and/or aspiration pneumonitis
--- NOTE | ~2021-02-24 | CT_ITS ---
EXAMINATION: CT CERVICAL SPINE WITHOUT CONTRAST CLINICAL INFORMATION: Found unresponsive COMPARISON: None TECHNIQUE: Multidetector CT imaging of the cervical spine was performed without the use of intravenous contrast. Coronal and sagittal reformats are reviewed. This CT examination was performed using dose optimization techniques as appropriate, variously including the following: *Automated exposure control *Adjustment of mA and/or kV according to patient size (this includes techniques or standardized protocols for targeted exams where dose is matched to indication/reason for exam; i.e. extremities or head) *Use of iterative reconstruction technique DLP: 953 mGy-cm FINDINGS: No acute fracture or traumatic malalignment. Vertebral body heights maintained. Small endplate osteophytes present at C5-C6 and C7-T1. In conjunction with osteoarthrosis, this leads to mild bilateral foraminal narrowing at C5-C6. Paraspinal soft tissues unremarkable. The patient is intubated. A nasopharyngeal airway is also present. CT/CT cervical spine wo con IMPRESSION: No acute fracture or traumatic malalignment of the cervical spine.
--- NOTE | ~2021-02-24 | CT_ITS ---
EXAMINATION: CT CHEST WITHOUT CONTRAST CLINICAL INFORMATION: Question of aspiration COMPARISON: None TECHNIQUE: Multidetector volumetric CT imaging of the chest was done. Axial MIP volume rendering provided. Sagittal and coronal reformatted images were obtained. This CT examination was performed using dose optimization techniques as appropriate, variously including the following: *Automated exposure control *Adjustment of mA and/or kV according to patient size (this includes techniques or standardized protocols for targeted exams where dose is matched to indication/reason for exam; i.e. extremities or head) *Use of iterative reconstruction technique DLP: 717 mGy-cm FINDINGS: LUNGS: There is bilateral dependent consolidation upper and lower lobes compatible with multifocal pneumonia, likely aspiration given the bilateral dependent distribution. MEDIASTINUM: Normal heart size. No pericardial effusion. Great vessels normal caliber. Endotracheal tube terminates less than 1 cm from the mandeep, consider slight retraction. PLEURA: There is no pleural effusion. No pleural mass or thickening. AXILLA: No lymphadenopathy. UPPER ABDOMEN: Unremarkable. OSSEOUS STRUCTURES: Unremarkable. CT/CT chest wo con IMPRESSION: Bilateral dependent consolidation predominating within the upper lungs bilaterally compatible with aspiration pneumonitis.
[2021-02-24] MEDS: Succinylcholine Chloride 200 MG/10 ML VIAL 100 MG IVPUSH (05:25)
[2021-02-24] MEDS: Etomidate 20 MG/10 ML VIAL IVPUSH (05:25)
--- NOTE | 2021-02-24 05:32 | ECG_ITS ---
Test Reason : SOB Blood Pressure : / mmHG Vent. Rate : 085 BPM Atrial Rate : 085 BPM P-R Int : 168 ms QRS Dur : 112 ms QT Int : 436 ms P-R-T Axes : 056 059 -11 degrees QTc Int : 518 ms Normal sinus rhythm Possible Left atrial enlargement T wave abnormality, consider inferior ischemia Abnormal ECG When compared with ECG of 15-NOV-2020 14:17, QRS duration has increased T wave inversion more evident in Inferior leads QT has lengthened Referred By: Beryl Guerra Electronically Signed By:Franco Gaines
--- NOTE | 2021-02-24 05:39 | ED_ITS ---
HPI - Altered Mental Status General Chief Complaint: Dyspnea Stated Complaint: SEMI RESPN,AGONAL BREATH,NARCAN GIVEN W/NO EFFECT Time Seen by Provider: 02/24/21 05:32 Source: patient, family () and EMS Mode of arrival: EMS Limitations: altered mental status (unresponsive) History of Present Illness HPI narrative: 41-year-old male brought in by ambulance for assessment of decreased responsiveness. This is a 41-year-old male was found by his on the floor of the living room, when the police arrived 1st patient had pulse then EMS arrived at home patient did not have puls and CPR was started, patient also was in agonal breathing with frothy saliva out of his mouth, when patient started to regain Pulse CPR was stopped, attempt of intubation by EMS at the field was not successful, patient was given 2 mg of Narcan with no response. Getting additional history from the patient had dental work earlier yesterday and patient took 1 Percocet for pain. On arrival patient has spontaneous pulse with normal electrical activity, patient was unresponsive pupil was 3 mm dilated, because of a concern of prot ecting airway patient was intubated. Patient found to be hypothermic. Related Data Home Medications Medication Instructions Recorded Confirmed loratadine 10 mg tablet 10 mg PO DAILY PRN 11/15/20 11/15/20 Previous Rx's Medication Instructions Recorded amlodipine 5 mg tablet (Norvasc) 5 mg PO DAILY #30 tab 11/17/20 aspirin 81 mg tablet,delayed 81 mg PO DAILY #30 tab 11/17/20 release atorvastatin 80 mg tablet 80 mg PO BEDTIME #30 tab 11/17/20 Allergies Allergy/AdvReac Type Severity Reaction Status Date / Time oxycodone [OXYCODONE] Allergy Intermediate itching Verified 11/17/20 12:52 Review of Systems Review of Systems: Yes unobtainable due to endotracheal tube and Unobtainable due to mental status PMFSH Past Medical History Medical History Arthritis Back injury Medial meniscus tear Surgical History History of orthopedic surgery Social History Social History Household Members: Spouse Housing: House Do you presently have visiting nurse or other home services: No Substance Use Type: Marijuana Advance Directives: No Advance Directives Information Provided: Yes service: No Current occupational status: unemployed Physical Exam Vital Signs: Vital Signs: Last Vital Signs Temp 90.0 F L 02/24/21 05:17 Pulse 83 02/24/21 05:17 Resp 20 02/24/21 05:17 BP 150/96 H 02/24/21 05:17 Pulse Ox 99 02/24/21 05:17 Body Mass Index 32.5 Vital signs have been reviewed as appeared to be correct. Blood pressure normal. Heart rate normal. Respiration rate normal. Hypothermia. Oxygen saturation normal. Appearance: Unresponsive. Head: Normal external exam. Normocephalic. Atraumatic. No David signs noted. No raccoon eyes noted Eyes: Pupils 3 mm dilated, Conjunctiva and sclera normal. Eyelids normal. ENT: TM's Normal. Pharynx normal. Uvula midline. Moist mucous membranes. No trismus noted. No drooling noted. No muffled voice noted. Neck: Normal inspection. Neck supple. FROM. No adenopathy. Thyroid Normal. No meningeal signs. No neck mass noted. CVS: Normal heart rate and rhythm. Heart sound normal. No murmurs noted. Pulses normal throughout. Respiratory: No respiratory distress. Painless inspiration. Breath sounds normal. No wheezes/rales/rhonchi noted. Chest nontender. No accessory muscle usage noted or decreased air movement noted. Abdomen: Soft and nontender. Bowel sounds normal in all 4 quadrants. No distention noted. No organomegaly noted. No visible injury noted. Skin: Skin warm and dry. Normal skin color. Normal skin turgor. No rashes/lesions/lacerations noted. Extremities: No lower extremity edema. Extremities exhibit normal range of motion. Neuro: Unresponsive GCS of 3. Course Course Course Narrative: Patient is hypothermic, hypotensive, very difficult to obtain blood, and very difficult to obtain IV access, attempt to place central line was not successful patient has peripheral line on the left hand and the right foot that is running fluid. due to lack IV accesses will continue with IV hydration/IV antibiotic/pressor. Reevaluation(s) Reevaluation #1: Patient continued to be hypotensive, improved with IV fluid now was 86/35, warming blanket applied to the patient. Time: 07:56 Reevaluation #2: Central line was successfully placed by Dr. fernandes. Time: 08:12 MDM - Altered Mental Status Medical Records Attestation: I reviewed the patient's medical records. Lab Data Result diagrams: 02/24/21 07:36 02/24/21 07:36 Labs: Lab Results 02/24/21 Range/Units Unknown Urine Color YELLOW Urine Appearance HAZY Urine pH 6.0 (5.0-8.0) Ur Specific [place] >= 1.030 H (1.005-1.025) Urine Protein 2+ H (NEG-TRACE) MG/DL Urine Glucose (UA) NEG (NEG) MG/DL Urine Ketones NEG (NEG) MG/DL Urine Blood 3+ H (NEG) Urine Nitrite NEG (NEG) Ur Leukocyte Esterase NEG (NEG) Imaging Data Chest x-ray: Radiologist's impression: Bilateral infiltrate consistent with aspiration pneumonia. Cervical spine CT: Radiologist's impression: No acute fracture or traumatic malalignment Chest CT: Radiologist's impression: Bilateral dependent consolidation predominating within the upper lungs bilaterally compatible with aspiration pneumonitis.? ECG Data ECG #1: Interpretation: Normal sinus rhythm at 85 beats per minutes, normal axis deviation, normal intervals, no ST-T changes. Attending Attestation No acute intracranial pathology. Critical Care Time Critical Care Time Critical Care Time: Yes Total Critical Care Time: 80 Attestation: I spent 60 minutes providing critical care service to the patient, this including time spent at the bedside to evaluate the patient, reassess the patient, monitoring vital signs, review labs, and radiographic studies, c ounseling the patient/family, discussing the case with consultants, disposition the patient. Discharge Plan Discharge Clinical Impression: Episode of unresponsiveness, Hypothermia, Septic shock Aspiration pneumonia Qualifiers: Laterality: bilateral Lung location: upper lobe of lung Patient Disposition: Admitted As Inpatient
[2021-02-24] MEDS: Midazolam HCl/PF 2 MG/2 ML VIAL IVPUSH (05:44)
--- NOTE | 2021-02-24 06:25 | PC.NURSE ---
0517 PT ARRIVED IN ED W/GRANEULOGIO FIRE AFTER BEING FOUND DOWN AT HOME BY VINOD AGONALLY BREATHING AT APPROX 4AM W/ LKW OF 1AM. FAMILY STATED PT HAD ROOT CANAL & TOOTH EXTRACTION TODAY, HAS A HX OF PREVIOUS STROKE IN NOVEMBER 2020 AND PTS CARE WAS HERE AT [facility]. PER EMS WHEN THEY ARRIVED ON SCENE PT HAD FAINT PULSE AND W/AGONAL BREATHING REQUIRING BVM VIA EMS PT HAD NO IV ACCESS ON ARRIVAL W/ EMS BP OF 116/66 FAILED INTUBATION VIA EMS 0520 POC 142 0524 HR 93 SPO2 86% RR 28 PER MD PLAN FOR INTUBATION 0525 20MG ETOMIDATE IVP IN, 100MG SUCC. IN IVP 0528 HR 78 O2 SAT 84% R 24 0529 MD ATTEMPTING INTUBATION. INTUBATION SUCCESSFUL W/ + COLOR CHANGE 7.5 et TUBE #26 @ TEETH. PER MD SET UP FOR PROPOFOL FOR SEDATION. 0532 BP 150/96 HR 83 O2 SAT 99% R 20 PT HAS #20 IN L HAND 0544 2MG VERSED IVP GIVEN PER MD 0545 PER MD PROPOFOL STARTED @ 20MCG/KG/MIN [address] NOW W/RN & RT 0607 PT REQUIRING ADDITIONAL SEDATION 2MG VERSED IVP GIVEN
[2021-02-24] MEDS: Piperacillin Sodium/Tazobactam 3.375 GM in 0.9 % Sodium Chloride 50 ML IV ×4 (07:44→22:07)
[2021-02-24] MEDS: 0.9 % Sodium Chloride 1,000 ML 999 ML IVCONT (07:45)
--- NOTE | 2021-02-24 08:00 | W.PM.CCHP ---
Procedures Date of Service Date of Service: 02/24/21 Central Line Placement Right IJ: Central Line Comments: Late note for procedure performed at 8:00 a.m. on 02/24/2021. Emergent right internal jugular triple-lumen central venous catheter placed for vasopressor support and vascular access under ultrasound guidance and usual sterile conditions with no immediate complications. Line position verified on chest x-ray.
[2021-02-24 08:01] LABS: Glucose Urine UA NEG (NEG); Leukocyte Esterase Urine NEG (NEG); Nitrite Urine NEG (NEG); Specific Gravity - Urine >= 1.030 (1.005-1.025); UACC Culture Trigger NO; Urine Blood 3+ (NEG); Urine Ketones NEG (NEG); Urine Protein 2+ MG/DL (NEG-TRACE)
[2021-02-24 08:04] LABS: Appearance Urine HAZY; Color Urine YELLOW
[2021-02-24 08:09] LABS: COVID-19 Test Negative (Negative)
[2021-02-24 08:17] LABS: Amphetamine Screen Urine Not Detected (Not Detect); Barbiturates, Urine Not Detected (Not Detect); Benzodiazepines Screen Urine POSITIVE (Not Detect); Cannabinoid Screen Urine Not Detected (Not Detect); Cocaine Screen Urine Not Detected (Not Detect); Opiate Screen Urine POSITIVE (Not Detect); Phencyclidine Screen Urine Not Detected (Not Detect)
[2021-02-24 08:20] LABS: B Type Natriuretic Peptide 58 pg/mL (<100); Troponin-I High Sensitivity 20.9 ng/L (<3.5-35.0)
[2021-02-24 08:22] LABS: Lactic Acid 4.1 mmol/L (0.5-2.0)
[2021-02-24 08:28] LABS: Bacteria Urine 1+ /LPF; Mucus Urine TRACE /LPF; Squamous Epithelial Cell Urine TRACE /LPF; UACC CULT YES
[2021-02-24 08:29] LABS: Alanine Aminotransferase 70 U/L (0-40); Albumin Level 3.7 g/dL (3.5-5.0); Alkaline Phosphatase 66 U/L (39-117); Anion Gap 20 (12-20); Aspartate Amino Transferase 87 U/L (5-37); Bilirubin Direct 0.3 mg/dL (0.0-0.5); Bilirubin Total 0.7 mg/dL (0.0-1.0); Blood Urea Nitrogen 22 mg/dL (9-16); Carbon Dioxide 16 mmol/L (22-29); Chloride 107 mmol/L (96-108); Creatinine Clr Calc Pharmacy 68.2; Estimated Glomerular Filt Rate 41; Glucose Random 39 mg/dL (60-115); Lipase 54 U/L (8-78); Potassium 4.7 mmol/L (3.3-5.1); Sodium 138 mmol/L (135-145); Total Protein 6.6 g/dL (6.5-8.0)
[2021-02-24] MEDS: vancomycin HCL 1,000 MG in 0.9 % Sodium Chloride 250 ML 270 MG IV (09:13)
--- NOTE | 2021-02-24 09:16 | PC.NURSE ---
Addendum entered by Addie Rosenbaum 02/24/21 09:32: dextrose 50 IVP via CL for glucose of 39 Original Note: pt received in bed 5, intubated, not responsive. does not move (sedated), does not follow commands. CM shows SR 60s. Vented at rate of 16, TV 450, FiO2 60%, PEEP 5. lungs with rhonchi and crackles. SaO2 93% on above settings. attempted to pass OG tube without success. miller catheter in place with output of 300 mL clear orange urine. Skin cool and moist, core temp 91, bare hugger in use. Iv 20 gauge to left hand with diprivan running at 40. IV 20 gauge to right foot with saline lock. Central line to right IJ with IVF (bag 3) running well and norepinephrine running at 0.09mcg/kg/min via white port, vancomycin 1gm running through blue port. Pt is well sedated. report given to STADIUM MANAGER. will transport with RT.
[2021-02-24 09:48] LABS: Glucose, Whole Blood 142 mg/dL (60-115)
[2021-02-24 09:49] LABS: Reflex Lactate? Lactic Acid Added
[2021-02-24 10:12] LABS: Glucose, Whole Blood 68 mg/dL (60-115)
[2021-02-24] MEDS: Dextrose 5 % and Lactated Ring 1,000 ML 50 ML IVCONT ×3 (10:14→10:34)
[2021-02-24] MEDS: Lactated Ringers 1,000 ML 999 ML IV ×2 (10:14→10:33)
[2021-02-24 10:18] LABS: Basophils Percent Auto 0.1 % (0-2); Eosinophils Percent Auto 0.1 % (0-4); Hematocrit 36.7 % (42-52); Hemoglobin 12.3 g/dl (14.0-18.0); Imm Gran Abs Auto 0.09 X10*3/uL (0.00-0.03); Imm Gran Pct Auto 0.5 % (0.0-0.4); Lymphocytes Percent Auto 5.9 % (20-40); Mean Corpuscular HGB Conc 33.5 g/dl (31.0-36.0); Mean Corpuscular Hemoglobin 30.9 pg (27.0-33.0); Mean Corpuscular Volume 92.2 fL (80-98); Mean Platelet Volume 9.2 fL (9.4-12.4); Monocytes Absolute Auto 0.9 X10*3/uL (0.1-1.2); Monocytes Percent Auto 5.2 % (2-11); Neutrophils Absolute Auto 15.5 X10*3/uL (2.0-8.3); Neutrophils Percent Auto 88.2 % (45-73); Platelet Count 314 X10*3/uL (160-400); Red Blood Count 3.98 X10*6/uL (4.60-5.80); Red Cell Distribution Width 11.9 % (11.0-16.0); White Blood Count 17.5 X10*3/uL (4.8-10.8)
[2021-02-24 10:23] LABS: MANUAL DIFF FLAG NO
[2021-02-24] MEDS: Chlorhexidine Gluc Oral Rinse 15 ML MOUTHWASH BUCCAL (10:31)
[2021-02-24] MEDS: Heparin Sodium,Porcine 5,000 UNIT/ML VIAL 5000 UNIT SUBCUT ×2 (10:31→17:09)
[2021-02-24] MEDS: Famotidine/PF 20 MG/2 ML VIAL IVPUSH ×2 (10:32→22:12)
[2021-02-24 10:36] LABS: ~Lactic Acid-LAB USE ONLY 1.9 mmol/L (0.5-2.0)
[2021-02-24 10:38] LABS: Ethanol < 10 mg/dL
[2021-02-24 10:51] LABS: Venous Blood Gas Refer to POC result
[2021-02-24 10:52] LABS: VBG Base Excess -6.6 mmol/L; VBG HCO3 22 mmol/L (22-26); VBG pCO2 59 mmHg; VBG pH 7.17 (7.32-7.43); VBG pO2 44 mmHg
[2021-02-24 10:56] LABS: Glucose, Whole Blood 85 mg/dL (60-115)
[2021-02-24] MEDS: Sodium Bicarbonate 8.4% 150 MEQ in Dextrose 5 % 850 ML 50 MEQ IV ×2 (11:03→19:36)
[2021-02-24] MEDS: Sodium Bicarbonate 8.4% 50 MEQ/50 ML VIAL IVPUSH (11:10)
--- NOTE | 2021-02-24 14:26 | PM.CCHP ---
History of Present Illness Date of Service: 02/24/21 Chief Complaint: Acute respiratory failure, shock, aspiration 41-year-old gentleman with underlying history of stroke in October of 2020 with underlying PFO, obesity, hypertension admitted on 02/24/2021 after he was found unresponsive by his fiancee with unclear down time. EMS on the scene started resuscitation, though it is unclear with patient did or did not have pulse. Intubation was attempted, but abandoned in the field. Gauze packing from recent dental procedure removed from the airway and patient transported to ER where he required intubation for refractory hypoxemia. Thereafter he developed what appears to be septic shock, likely secondary to aspiration event requiring placement of central lying initiation of vasopressor support and broad-spectrum antibiotics Patient has been admitted to intensive care unit. At approximately 2:00 p.m. patient woke up despite sedation with propofol, he followed commands and his FiO2 requirements of appropriate. He was extubated uneventfully. Review of Systems Review of Systems: Yes Unobtainable due to mental condition PMFSH Past Medical History Medical History Arthritis Back injury Medial meniscus tear Surgical History Surgical History History of orthopedic surgery Social History Social History Household Members: Spouse and Children Housing: Homeless Do you presently have visiting nurse or other home services: No Patient Tobacco Use Status: Current someday Tobacco user Tobacco use type: Cigarette Smoked in Last 30 Days: Yes e-Cigarette/Vaping Use: Currently Using Patient Interested in Nicotine Replacement: No Patient Given Instructions on How to Stop Smoking: No Second Hand Smoke Exposure: No Use of substances other than those prescribed or required for medical reasons: Unknown Substance Use Type: Marijuana Currently Displaying Signs/Symptoms of Drug Intoxication Withdrawal: No Any prior treatment program specific to substance use: No Advance Directives: No Advance Directives Information Provided: Yes Advance Directives on File: No Do you have thoughts of harming others: None Do you have a plan to hurt others: No Plan Recently lost weight without trying: No Nutrition Risks: No Nutritional Risk Poor oral hygiene: No service: No Current occupational status: unemployed Meds Allergies Allergy/AdvReac Type Severity Reaction Status Date / Time oxycodone [OXYCODONE] Allergy Intermediate itching Verified 11/17/20 12:52 Active Medications: Current Medications Generic Name Dose Route Start Last Admin Trade Name Ju PRN Reason Stop Dose Admin Chlorhexidine Gluconate 15 ml 02/24/21 08:30 02/24/21 10:31 Chlorhexidine Gluc Oral Rinse 15 Ml Mouthwash BUCCAL 15 ml Q8H BRETT Administration Famotidine 20 mg 02/24/21 09:00 02/24/21 10:32 Famotidine/Pf 20 Mg/2 Ml Vial IVPUSH 20 mg BID BRETT Administration Heparin Sodium (Porcine) 5,000 unit 02/24/21 08:30 02/24/21 10:31 Heparin Sodium,Porcine 5,000 Unit/Ml Vial SUBCUT 5,000 unit Q8H BRETT Administration Norepinephrine Bitartrate 8 mg in 250 mls @ 0 mls/hr 02/24/21 07:45 02/24/21 13:37 Levophed IVCONT 0.12 mcg/kg/min .Q0M BRETT 25.2 mls/hr Administration Protocol Per Protocol Piperacillin Sod/Tazobactam 50 mls @ 100 mls/hr 02/24/21 08:30 02/24/21 10:54 Sod 3.375 gm/ Sodium Chloride IV Infused Q6H BRETT Infusion Sodium Bicarbonate 150 meq/ 1,000 mls @ 50 mls/hr 02/24/21 11:00 02/24/21 11:03 Dextrose IV 50 mls/hr .Q20H BRETT Administration Propofol 1,000 mg in 100 mls @ 0 mls/hr 02/24/21 13:45 02/24/21 13:54 Diprivan IVCONT 50 mcg/kg/min .Q0M BRETT 33.6 mls/hr Administration Protocol Per Protocol Home Medications Medication Instructions Recorded Confirmed Last Taken Type loratadine 10 mg tablet 10 mg PO DAILY PRN 11/15/20 02/24/21 11/15/20 History acetaminophen 300 mg-codeine 30 mg 1 tab PO Q6H PRN 02/24/21 02/24/21 Unknown History tablet amoxicillin 500 mg capsule 2 cap PO BID 02/24/21 02/24/21 Unknown History Physical Exam Vital Signs: Vital Signs: Last Vital Signs Temp 98.2 F 02/24/21 14:00 Pulse 91 02/24/21 14:00 Resp 15 02/24/21 14:00 BP 115/67 02/24/21 14:00 Pulse Ox 95 02/24/21 14:00 Oxygen Flow Rate 50 02/24/21 08:21 Body Mass Index 32.5 Const: General: no acute distress, alert and awake Eyes: Sclerae: sclerae normal EOM: EOMs intact bilaterally Neck: Neck: Yes no lymphadenopathy, Yes trachea midline and Yes supple Resp: Effort & Inspection: normal respiratory effort and no respiratory distress Auscultation: crackles (Diffuse bilateral) Cardio: Rate: regular rate Rhythm: regular rhythm Heart sounds: no gallops, no murmurs and no rubs GI: Palpation (GI): Soft to palpation and Other GI palpation findings present ( Nontender) Auscultation: normal bowel sounds Extrem: General: Yes no pedal edema, No clubbing and No cyanosis Results Labs CBC and Chem 7: 02/24/21 10:08 02/24/21 07:36 Labs: Laboratory Results - last 24 hr 02/24/21 02/24/21 02/24/21 05:19 07:10 07:35 MCV MCH MCHC RDW Plt Count MPV Immature Gran % (Auto) Neut % (Auto) Lymph % (Auto) [place] % (Auto) Eos % (Auto) Baso % (Auto) Lymph # (Auto) [place] # (Auto) Eos # (Auto) Baso # (Auto) Abs Immat Gran (auto) Absolute Neuts (auto) Absolute Nucleated RBC Nucleated RBC % (auto) VBG pH VBG pCO2 VBG pO2 VBG HCO3 VBG O2 Saturation VBG Base Excess Anion Gap Estim Creat Clear Calc Estimated GFR POC Glucose 142 H Random Glucose Lactic Acid 4.1 H* Lactic Acid Fup @ 2Hr Calcium Total Bilirubin Direct Bilirubin AST ALT Alkaline Phosphatase Troponin I High Sens B-Natriuretic Peptide Total Protein Albumin Lipase Urine Color Urine Appearance Urine pH Ur Specific [place] Urine Protein Urine Glucose (UA) Urine Ketones Urine Blood Urine Nitrite Ur Leukocyte Esterase Urine RBC Urine WBC Ur Squamous Epith Cells Urine Bacteria Urine Mucus Urine Opiates Screen Ur Barbiturates Screen Ur Phencyclidine Scrn Ur Amphetamines Screen U Benzodiazepines Scrn Urine Cocaine Screen U Marijuana (THC) Screen Ethyl Alcohol COVID-19 (REED) Negative COVID-19 Clin Com See Note 02/24/21 02/24/21 02/24/21 07:36 07:36 10:03 MCV MCH MCHC RDW Plt Count MPV Immature Gran % (Auto) Neut % (Auto) Lymph % (Auto) [place] % (Auto) Eos % (Auto) Baso % (Auto) Lymph # (Auto) [place] # (Auto) Eos # (Auto) Baso # (Auto) Abs Immat Gran (auto) Absolute Neuts (auto) Absolute Nucleated RBC Nucleated RBC % (auto) VBG pH VBG pCO2 VBG pO2 VBG HCO3 VBG O2 Saturation VBG Base Excess Anion Gap 20 Estim Creat Clear Calc 68.2 Estimated GFR 41 POC Glucose 68 Random Glucose 39 L* Lactic Acid Lactic Acid Fup @ 2Hr Calcium 8.0 L D Total Bilirubin 0.7 Direct Bilirubin 0.3 AST 87 H ALT 70 H Alkaline Phosphatase 66 Troponin I High Sens 20.9 B-Natriuretic Peptide 58 Total Protein 6.6 Albumin 3.7 D Lipase 54 Urine Color Urine Appearance Urine pH Ur Specific [place] Urine Protein Urine Glucose (UA) Urine Ketones Urine Blood Urine Nitrite Ur Leukocyte Esterase Urine RBC Urine WBC Ur Squamous Epith Cells Urine Bacteria Urine Mucus Urine Opiates Screen Ur Barbiturates Screen Ur Phencyclidine Scrn Ur Amphetamines Screen U Benzodiazepines Scrn Urine Cocaine Screen U Marijuana (THC) Screen Ethyl Alcohol COVID-19 (REED) COVID-19 Clin Com 02/24/21 02/24/21 02/24/21 10:08 10:08 10:08 MCV 92.2 MCH 30.9 MCHC 33.5 RDW 11.9 Plt Count 314 MPV 9.2 L Immature Gran % (Auto) 0.5 H Neut % (Auto) 88.2 H Lymph % (Auto) 5.9 L [place] % (Auto) 5.2 Eos % (Auto) 0.1 Baso % (Auto) 0.1 Lymph # (Auto) 1.0 L [place] # (Auto) 0.9 Eos # (Auto) 0.0 Baso # (Auto) 0.0 Abs Immat Gran (auto) 0.09 H Absolute Neuts (auto) 15.5 H Absolute Nucleated RBC 0.000 Nucleated RBC % (auto) 0.0 VBG pH VBG pCO2 VBG pO2 VBG HCO3 VBG O2 Saturation VBG Base Excess Anion Gap Estim Creat Clear Calc Estimated GFR POC Glucose Random Glucose Lactic Acid Lactic Acid Fup @ 2Hr 1.9 Calcium Total Bilirubin Direct Bilirubin AST ALT Alkaline Phosphatase Troponin I High Sens B-Natriuretic Peptide Total Protein Albumin Lipase Urine Color Urine Appearance Urine pH Ur Specific [place] Urine Protein Urine Glucose (UA) Urine Ketones Urine Blood Urine Nitrite Ur Leukocyte Esterase Urine RBC Urine WBC Ur Squamous Epith Cells Urine Bacteria Urine Mucus Urine Opiates Screen Ur Barbiturates Screen Ur Phencyclidine Scrn Ur Amphetamines Screen U Benzodiazepines Scrn Urine Cocaine Screen U Marijuana (THC) Screen Ethyl Alcohol < 10 COVID-19 (REED) COVID-19 [email or web address] Com 02/24/21 02/24/21 02/24/21 10:43 10:53 Unknown MCV MCH MCHC RDW Plt Count MPV Immature Gran % (Auto) Neut % (Auto) Lymph % (Auto) [place] % (Auto) Eos % (Auto) Baso % (Auto) Lymph # (Auto) [place] # (Auto) Eos # (Auto) Baso # (Auto) Abs Immat Gran (auto) Absolute Neuts (auto) Absolute Nucleated RBC Nucleated RBC % (auto) VBG pH 7.17 L* VBG pCO2 59 VBG pO2 44 VBG HCO3 22 VBG O2 Saturation 67.0 VBG Base Excess -6.6 Anion Gap Estim Creat Clear Calc Estimated GFR POC Glucose 85 Random Glucose Lactic Acid Lactic Acid Fup @ 2Hr Calcium Total Bilirubin Direct Bilirubin AST ALT Alkaline Phosphatase Troponin I High Sens B-Natriuretic Peptide Total Protein Albumin Lipase Urine Color YELLOW Urine Appearance HAZY Urine pH 6.0 Ur Specific [place] >= 1.030 H Urine Protein 2+ H Urine Glucose (UA) NEG Urine Ketones NEG Urine Blood 3+ H Urine Nitrite NEG Ur Leukocyte Esterase NEG Urine RBC 1-4 Urine WBC 5-9 H Ur Squamous Epith Cells TRACE Urine Bacteria 1+ Urine Mucus TRACE Urine Opiates Screen Ur Barbiturates Screen Ur Phencyclidine Scrn Ur Amphetamines Screen U Benzodiazepines Scrn Urine Cocaine Screen U Marijuana (THC) Screen Ethyl Alcohol COVID-19 (REED) COVID-19 [email or web address] Com 02/24/21 Unknown MCV MCH MCHC RDW Plt Count MPV Immature Gran % (Auto) Neut % (Auto) Lymph % (Auto) [place] % (Auto) Eos % (Auto) Baso % (Auto) Lymph # (Auto) [place] # (Auto) Eos # (Auto) Baso # (Auto) Abs Immat Gran (auto) Absolute Neuts (auto) Absolute Nucleated RBC Nucleated RBC % (auto) VBG pH VBG pCO2 VBG pO2 VBG HCO3 VBG O2 Saturation VBG Base Excess Anion Gap Estim Creat Clear Calc Estimated GFR POC Glucose Random Glucose Lactic Acid Lactic Acid Fup @ 2Hr Calcium Total Bilirubin Direct Bilirubin AST ALT Alkaline Phosphatase Troponin I High Sens B-Natriuretic Peptide Total Protein Albumin Lipase Urine Color Urine Appearance Urine pH Ur Specific [place] Urine Protein Urine Glucose (UA) Urine Ketones Urine Blood Urine Nitrite Ur Leukocyte Esterase Urine RBC Urine WBC Ur Squamous Epith Cells Urine Bacteria Urine Mucus Urine Opiates Screen POSITIVE H Ur Barbiturates Screen Not Detected Ur Phencyclidine Scrn Not Detected Ur Amphetamines Screen Not Detected U Benzodiazepines Scrn POSITIVE H Urine Cocaine Screen Not Detected U Marijuana (THC) Screen Not Detected Ethyl Alcohol COVID-19 (REED) COVID-19 Clin Com Imaging Radiologist's Impressions: Impressions Chest X-Ray 02/24/21 05:32 IMPRESSION: Bilateral upper lung patchy airspace opacities suspicious for multifocal pneumonia and/or aspiration pneumonitis Head CT 02/24/21 06:01 IMPRESSION: No acute intracranial pathology. Chronic right paulson radiata and right internal capsule lacunar infarcts. This critical result was discussed with Dr Carpenter at 02/24/2021 6:07 AM and it was ascertained that the content and urgency of the report was understood at the time of direct communication. Cervical Spine CT 02/24/21 06:02 IMPRESSION: No acute fracture or traumatic malalignment of the cervical spine. Chest CT 02/24/21 06:21 IMPRESSION: Bilateral dependent consolidation predominating within the upper lungs bilaterally compatible with aspiration pneumonitis. Chest X-Ray 02/24/21 13:18 IMPRESSION: Catheters and tubes in position as described. Bilateral patchy regions of airspace disease. Assessment and Plan (1) Toxic encephalopathy: Status: Acute Assessment: 41-year-old gentleman admitted with acute hypoxic respiratory failure, septic shock, aspiration pneumonitis versus pneumonia likely secondary to an aspiration event and toxic encephalopathy secondary to unintentional opioid overdose. Plan: Neuro: Toxic encephalopathy, likely secondary to unintentional opioid overdose as patient has taking Percocet the evening prior for dental extraction, improved. Cardiac: Septic shock, continue to titrate off pressors as tolerated. Pulmonary: Acute hypoxic respiratory failure secondary to an aspiration event, initially requiring ventilatory support, now extubated. Continue to titrate off supplemental oxygen as tolerated. Renal: Acute kidney injury, likely secondary to ATN from septic shock. Continue to monitor renal indices and urine output. Endo: No acute issues. GI: No acute issues. ID: Aspiration pneumonia versus pneumonitis, empirically covered with broad-spectrum antibiotics. Heme/Onc: No acute issues. Psych: No acute issues. Miscellaneous: No acute issues. Prophylaxis: Heparin Diet: Nothing by mouth Critical care time spent: 90 minutes excluding separately billable procedures (2) Aspiration pneumonia: Qualifiers: Laterality: bilateral Lung location: upper lobe of lung Status: Acute (3) Septic shock: Status: Acute (4) Acute respiratory failure with hypoxia: Status: Acute (5) HTN (hypertension): Qualifiers: Hypertension type: unspecified Qualified Code(s): I10 - Essential (primary) hypertension Status: Acute (6) Obesity: Status: Acute (7) Acute kidney injury: Status: Acute
--- NOTE | 2021-02-24 15:37 | MHC.CM.PN ---
Pt emergently intubated and brought to ICU: unable to participate in CM assessment - information obtained from EMR, care team and spouse note pt was independent prior to admission - pt is expected to return to full functional abilities and d/c to home. CM to follow for any changes to plan. Spouse can transport
--- NOTE | 2021-02-24 23:45 | ECG_ITS ---
Test Reason : t wave inversion Blood Pressure : / mmHG Vent. Rate : 095 BPM Atrial Rate : 095 BPM P-R Int : 162 ms QRS Dur : 082 ms QT Int : 382 ms P-R-T Axes : 062 048 016 degrees QTc Int : 480 ms Normal sinus rhythm Possible Left atrial enlargement Nonspecific T wave abnormality Prolonged QT Abnormal ECG When compared with ECG of 24-FEB-2021 05:32, QRS duration has decreased Nonspecific T wave abnormality now evident in Anterior leads Referred By: Deb Monzon Electronically Signed By:Franco aGines
[2021-02-25] VITALS (14 sets, daily range): BP systolic 97–160; BP diastolic 56–98; PULSE 18–101; RESP 13–21; TEMP 36.6–37.6; O2SAT 90–100; BMI 33.1
[2021-02-25] MEDS: Piperacillin Sodium/Tazobactam 3.375 GM in 0.9 % Sodium Chloride 50 ML IV ×2 (01:47→08:46)
[2021-02-25 06:18] LABS: MANUAL DIFF FLAG NO
[2021-02-25 06:20] LABS: Basophils Percent Auto 0.1 % (0-2); Eosinophils Percent Auto 0.2 % (0-4); Hematocrit 31.9 % (42-52); Hemoglobin 11.1 g/dl (14.0-18.0); Imm Gran Abs Auto 0.03 X10*3/uL (0.00-0.03); Imm Gran Pct Auto 0.3 % (0.0-0.4); Lymphocytes Absolute Auto 1.4 X10*3/uL (1.2-4.9); Mean Corpuscular HGB Conc 34.8 g/dl (31.0-36.0); Mean Corpuscular Hemoglobin 31.3 pg (27.0-33.0); Mean Corpuscular Volume 89.9 fL (80-98); Mean Platelet Volume 9.6 fL (9.4-12.4); Monocytes Absolute Auto 0.6 X10*3/uL (0.1-1.2); Monocytes Percent Auto 5.2 % (2-11); Neutrophils Absolute Auto 8.7 X10*3/uL (2.0-8.3); Neutrophils Percent Auto 81.2 % (45-73); Platelet Count 245 X10*3/uL (160-400); Red Blood Count 3.55 X10*6/uL (4.60-5.80); Red Cell Distribution Width 12.1 % (11.0-16.0); White Blood Count 10.7 X10*3/uL (4.8-10.8)
[2021-02-25 06:26] LABS: Venous Blood Gas Refer to POC result
[2021-02-25 06:27] LABS: VBG Base Excess 6.7 mmol/L; VBG HCO3 32 mmol/L (22-26); VBG pCO2 50 mmHg; VBG pH 7.41 (7.32-7.43); VBG pO2 76 mmHg
[2021-02-25 06:54] LABS: Alanine Aminotransferase 133 U/L (0-40); Albumin Level 3.3 g/dL (3.5-5.0); Alkaline Phosphatase 52 U/L (39-117); Anion Gap 12 (12-20); Aspartate Amino Transferase 123 U/L (5-37); Bilirubin Total 0.9 mg/dL (0.0-1.0); Blood Urea Nitrogen 12 mg/dL (9-16); Calcium 8.2 mg/dL (8.4-10.2); Carbon Dioxide 28 mmol/L (22-29); Chloride 106 mmol/L (96-108); Creatinine Clr Calc Pharmacy 118.8; Estimated Glomerular Filt Rate > 60; Glucose Random 97 mg/dL (60-115); Magnesium 1.7 mg/dL (1.6-2.6); Phosphorus 2.5 mg/dL (2.7-4.5); Potassium 3.8 mmol/L (3.3-5.1); Sodium 142 mmol/L (135-145); Total Protein 5.3 g/dL (6.5-8.0)
[2021-02-25] MEDS: Heparin Sodium,Porcine 5,000 UNIT/ML VIAL 5000 UNIT SUBCUT ×3 (08:45→22:58)
[2021-02-25] MEDS: Famotidine/PF 20 MG/2 ML VIAL IVPUSH (08:46)
[2021-02-25] MEDS: Chlorhexidine Gluc Oral Rinse 15 ML MOUTHWASH BUCCAL (08:46)
[2021-02-25] MEDS: Sodium,Potassium Phosphates POWD.PACK 2 PACKET PO (09:25)
--- NOTE | 2021-02-25 10:43 | PC.NURSE ---
Patient stable, extubated on 02/24/21 s/p cardiac arrest with ROSC. No neuro deficits. A+OX3, Amena equally and strong. LSC, NC O2 upon assessment was 4L/min, titrated down to 2L. SpO2 sustained 96% and better. Passed Nursing bedside swallow eval. Diet entered, tolerating liquids well. Hester removed for transfer up to [facility] [place]. Orders received and carried out. Right IJ TLC remains in place for inability to start a peripheral line. Report to nurse Meron.
--- NOTE | 2021-02-25 10:52 | P.PNCC_ITS ---
Subjective Subjective Date of Service: 02/25/21 Interval History: 41-year-old gentleman with underlying history of stroke in October of 2020 with underlying PFO, obesity, hypertension admitted on 02/24/2021 after he was found unresponsive by his fiancee with unclear down time. EMS on the scene started resuscitation, though it is unclear with patient did or did not have pulse. Intubation was attempted, but abandoned in the field. Gauze packing from recent dental procedure removed from the airway and patient transported to ER where he required intubation for refractory hypoxemia. Ther eafter he developed what appears to be septic shock, likely secondary to aspiration event requiring placement of central lying initiation of vasopressor support and broad-spectrum antibiotics Patient has been admitted to intensive care unit. At approximately 2:00 p.m. patient woke up despite sedation with propofol, he followed commands and his FiO2 requirements of appropriate. He was extubated uneventfully. No events overnight. Renal function improved. Passed bedside swallow evaluation. Critical Care Time (minutes): 0 Physical Exam Vital Signs: Vital Signs: Last Vital Signs Temp 98.6 F 02/25/21 10:00 Pulse 94 02/25/21 10:00 Resp 19 02/25/21 10:00 BP 138/88 02/25/21 10:00 Pulse Ox 99 02/25/21 10:00 Oxygen Flow Rate 50 02/24/21 08:21 Body Mass Index 33.1 Const: General: no acute distress, alert and awake Eyes: Sclerae: sclerae normal EOM: EOMs intact bilaterally Neck: Neck: Yes no lymphadenopathy, Yes trachea midline and Yes supple Resp: Effort & Inspection: normal respiratory effort and no respiratory distress Auscultation: clear to auscultation bilaterally Cardio: Rate: regular rate Rhythm: regular rhythm Heart sounds: no gallops, no murmurs and no rubs GI: Palpation (GI): Soft to palpation and Other GI palpation findings present ( Nontender) Auscultation: normal bowel sounds Extrem: General: Yes no pedal edema, No clubbing and No cyanosis Objective Data Labs CBC & Chem 7: 02/25/21 06:12 02/25/21 06:00 Labs: Laboratory Results - last 24 hr 02/24/21 02/24/21 02/25/21 10:43 10:53 06:00 WBC RBC Hgb Hct MCV MCH MCHC RDW Plt Count MPV Immature Gran % (Auto) Neut % (Auto) Lymph % (Auto) [place] % (Auto) Eos % (Auto) Baso % (Auto) Lymph # (Auto) [place] # (Auto) Eos # (Auto) Baso # (Auto) Abs Immat Gran (auto) Absolute Neuts (auto) Absolute Nucleated RBC Nucleated RBC % (auto) VBG pH 7.17 L* VBG pCO2 59 VBG pO2 44 VBG HCO3 22 VBG O2 Saturation 67.0 VBG Base Excess -6.6 Sodium 142 Potassium 3.8 Chloride 106 Carbon Dioxide 28 Anion Gap 12 BUN 12 Creatinine 1.06 Estim Creat Clear Calc 118.8 Estimated GFR > 60 POC Glucose 85 Random Glucose 97 D Calcium 8.2 L Phosphorus 2.5 L Magnesium 1.7 Total Bilirubin 0.9 AST 123 H ALT 133 H Alkaline Phosphatase 52 D Total Protein 5.3 L Albumin 3.3 L 02/25/21 02/25/21 06:12 06:16 WBC 10.7 RBC 3.55 L Hgb 11.1 L Hct 31.9 L MCV 89.9 MCH 31.3 MCHC 34.8 RDW 12.1 Plt Count 245 MPV 9.6 Immature Gran % (Auto) 0.3 Neut % (Auto) 81.2 H Lymph % (Auto) 13.0 L [place] % (Auto) 5.2 Eos % (Auto) 0.2 Baso % (Auto) 0.1 Lymph # (Auto) 1.4 [place] # (Auto) 0.6 Eos # (Auto) 0.0 Baso # (Auto) 0.0 Abs Immat Gran (auto) 0.03 Absolute Neuts (auto) 8.7 H Absolute Nucleated RBC 0.000 Nucleated RBC % (auto) 0.0 VBG pH 7.41 VBG pCO2 50 VBG pO2 76 VBG HCO3 32 H VBG O2 Saturation 95.0 VBG Base Excess 6.7 Sodium Potassium Chloride Carbon Dioxide Anion Gap BUN Creatinine Estim Creat Clear Calc Estimated GFR POC Glucose Random Glucose Calcium Phosphorus Magnesium Total Bilirubin AST ALT Alkaline Phosphatase Total Protein Albumin Quality Stroke Does the patient have a stroke diagnosis?: No VTE Prior VTE?: No VTE Risk Level:: Medical - moderate - high VTE Device Contraindication: Treatment Not Indicated VTE Drug Contraindication: N/A - Med Ordered Progress Note: A&P Assessment and plan (1) Acute kidney injury: Status: Acute Assessment and Plan: Assessment: 41-year-old gentleman admitted with acute hypoxic respiratory failure, septic shock, aspiration pneumonitis versus pneumonia likely secondary to an aspiration event and toxic encephalopathy secondary to unintentional opioi d overdose. Plan: Neuro: Toxic encephalopathy, likely secondary to unintentional opioid overdose as patient was taking Percocet the evening prior for dental extraction, resolved. Cardiac: Septic shock, resolved. Pulmonary: Acute hypoxic respiratory failure secondary to an aspiration event, initially requiring ventilatory support, now extubated. Improved significantly. Continue to titrate off supplemental oxygen as tolerated. Renal: Acute kidney injury, resolved. Endo: No acute issues. GI: Transaminitis, likely ischemic, continue to monitor. ID: Aspiration pneumonia versus pneumonitis, empirically covered with Unasyn. Heme/Onc: No acute issues. Psych: No acute issues. Miscellaneous: No acute issues. Prophylaxis: Heparin Diet: Regular (2) Acute respiratory failure with hypoxia: Status: Acute (3) Toxic encephalopathy: Status: Acute (4) Aspiration pneumonia: Status: Acute (5) Septic shock: Status: Acute (6) HTN (hypertension): Status: Acute (7) Transaminitis: Status: Acute
--- NOTE | 2021-02-25 16:30 | PM.EVENT ---
Event Note Date of Service: 02/25/21 Event Note: Hospitalist F/U Transferred this afternoon. Seen on IMC Feels okay. Exam vitals stable gen - nad cvs - s1s2 lungs - no distress neuro - aaox3 a/p iv unasyn trend lfts / renal function f/u cultures d/c next 1-2 days as he stablizes
[2021-02-25] MEDS: Ampicillin Sodium/Sulbactam Na 3 GM in 0.9 % Sodium Chloride 100 ML IV ×2 (17:31→22:58)
[2021-02-26 03:51] VITALS: BP 145/90; PULSE 87; RESP 18; TEMP 37.1; O2SAT 95
[2021-02-26] MEDS: Ampicillin Sodium/Sulbactam Na 3 GM in 0.9 % Sodium Chloride 100 ML IV ×2 (03:51→11:38)
[2021-02-26 05:33] VITALS: BMI 31.2
[2021-02-26 06:33] LABS: MANUAL DIFF FLAG NO
[2021-02-26 06:45] LABS: Basophils Percent Auto 0.1 % (0-2); Eosinophils Absolute Auto 0.1 X10*3/uL (0.0-0.4); Eosinophils Percent Auto 0.8 % (0-4); Hematocrit 33.7 % (42-52); Hemoglobin 11.7 g/dl (14.0-18.0); Imm Gran Abs Auto 0.03 X10*3/uL (0.00-0.03); Imm Gran Pct Auto 0.3 % (0.0-0.4); Lymphocytes Absolute Auto 1.7 X10*3/uL (1.2-4.9); Lymphocytes Percent Auto 19.2 % (20-40); Mean Corpuscular HGB Conc 34.7 g/dl (31.0-36.0); Mean Corpuscular Hemoglobin 31.3 pg (27.0-33.0); Mean Corpuscular Volume 90.1 fL (80-98); Mean Platelet Volume 10.2 fL (9.4-12.4); Monocytes Absolute Auto 0.6 X10*3/uL (0.1-1.2); Monocytes Percent Auto 6.4 % (2-11); Neutrophils Absolute Auto 6.5 X10*3/uL (2.0-8.3); Neutrophils Percent Auto 73.2 % (45-73); Platelet Count 245 X10*3/uL (160-400); Red Blood Count 3.74 X10*6/uL (4.60-5.80); Red Cell Distribution Width 12.1 % (11.0-16.0); White Blood Count 8.9 X10*3/uL (4.8-10.8)
[2021-02-26 07:29] LABS: Alanine Aminotransferase 105 U/L (0-40); Albumin Level 3.6 g/dL (3.5-5.0); Alkaline Phosphatase 58 U/L (39-117); Anion Gap 15 (12-20); Aspartate Amino Transferase 88 U/L (5-37); Bilirubin Total 0.6 mg/dL (0.0-1.0); Blood Urea Nitrogen 8 mg/dL (9-16); Calcium 8.8 mg/dL (8.4-10.2); Carbon Dioxide 27 mmol/L (22-29); Chloride 107 mmol/L (96-108); Creatinine Clr Calc Pharmacy 122.5; Estimated Glomerular Filt Rate > 60; Glucose Random 116 mg/dL (60-115); Sodium 145 mmol/L (135-145)
[2021-02-26 07:31] VITALS: BP 163/92; PULSE 85; RESP 20; TEMP 37; O2SAT 96
[2021-02-26] MEDS: Heparin Sodium,Porcine 5,000 UNIT/ML VIAL 5000 UNIT SUBCUT (08:57)
[2021-02-26] MEDS: Aspirin Enteric Coated 81 MG TABLET.DR PO (08:58)
[2021-02-26 11:10] VITALS: BP 142/95; PULSE 94; RESP 20; TEMP 36.6; O2SAT 97
--- NOTE | 2021-02-26 12:01 | PM.DS ---
DS: Providers Provider Date of Service: 02/26/21 <Azul Bach NP - Last Filed: 02/28/21 17:53> Date of admission: 02/24/21 08:21 <Azul Bach NP - Last Filed: 02/28/21 17:53> Date of discharge: 02/26/21 <Azul Bach NP - Last Filed: 02/28/21 17:53> Primary care physician: Unknown Physician <Azul Bach NP - Last Filed: 02/28/21 17:53> Admitting clinician: Gregg York <Azul Bach NP - Last Filed: 02/28/21 17:53> Attending physician on admission: Gregg York <Azul Bach NP - Last Filed: 02/28/21 17:53> Attending physician on discharge: José Jones <Azul Bach NP - Last Filed: 02/28/21 17:53> Discharging clinician: Azul Bach <Azul Bach NP - Last Filed: 02/28/21 17:53> DS: Diagnosis Discharge Diagnosis (1) Septic shock: Status: Resolved <Azul Bach NP - Last Filed: 02/28/21 17:53> (2) Acute respiratory failure with hypoxia: Status: Resolved <Azul Bach NP - Last Filed: 02/28/21 17:53> (3) Aspiration pneumonia: Status: Acute <Azul Bach NP - Last Filed: 02/28/21 17:53> (4) Acute kidney injury: Status: Resolved <Azul Bach NP - Last Filed: 02/28/21 17:53> (5) Transaminitis: Status: Acute <Azlu Bach NP - Last Filed: 02/28/21 17:53> (6) Toxic encephalopathy: Status: Resolved <Azul Bach NP - Last Filed: 02/28/21 17:53> (7) HTN (hypertension): Status: Acute <Azul Bach NP - Last Filed: 02/28/21 17:53> DS: Summary Hospital Course Hospital Course: HP as per admitting provider 41-year-old gentleman with underlying history of stroke in October of 2020 with underlying PFO, obesity, hypertension admitted on 02/24/2021 after he was found unresponsive by his fiancee with unclear down time.? EMS on the scene started resuscitation, though it is unclear with patient did or did not have pulse.? Intubation was attempted, but abandoned in the field. Gauze packing from recent dental procedure removed from the airway and patient transported to ER where he required intubation for refractory hypoxemia.? Thereafter he developed what appears to be septic shock, likely secondary to aspiration event requiring placement of central lying initiation of vasopressor support and broad-spectrum antibiotics? Patient has been admitted to intensive care unit.? At approximately 2:00 p.m. patient woke up despite sedation with propofol, he followed commands and his FiO2 requirements of appropriate.? He was extubated uneventfully . Aspiration pneumonia. patient had dental procedure and had a gauze placed. Unfortunately the patient fell asleep and aspirated the gauze. During the course he was admitted to ICU and intubated and subsequently successfully extubated. He was transferred to intermediate care floor, treated with IV Zosyn for aspiration pneumonia. Patient did well after extubation and subsequently was sent home with oral antibiotics. <Azul Bach NP - Last Filed: 02/28/21 17:53> Time Spent with Patient Time attestation: Total time spent providing and/or coordinating discharge services: <Azul Bach NP - Last Filed: 02/28/21 17:53> Discharge coordination time: Greater than 30 minutes <Azul Bach NP - Last Filed: 02/28/21 17:53> Quality: Stroke Does the patient have a stroke diagnosis?: No <Azul Bach NP - Last Filed: 02/28/21 17:53> Physical Exam Vital Signs: Vital Signs: Last Vital Signs Temp 97.9 F 02/26/21 11:10 Pulse 94 02/26/21 11:10 Resp 20 02/26/21 11:10 BP 142/95 H 02/26/21 11:10 Pulse Ox 97 02/26/21 11:10 Oxygen Flow Rate 50 02/24/21 08:21 Body Mass Index 31.2 <Azul Bach NP - Last Filed: 02/28/21 17:53> Appearing in no acute distress head is normocephalic atraumatic eyes pupils are PERRLA sclera is anicteric mouth throat mucous membranes are intact and moist neck is supple no lymphadenopathy, no JVD noted lung sounds are clear to auscultation heart regular rate rhythm, clear S1, S2 positive bowel sounds, abdomen is soft, nontender neuro patient is alert x3, no focal deficits <Azul Bach NP - Last Filed: 02/28/21 17:53> DS: Data Data Completed and Pending Labs on day of discharge: Laboratory Results - last 24 hr 02/26/21 02/26/21 05:23 05:23 WBC 8.9 RBC 3.74 L Hgb 11.7 L Hct 33.7 L MCV 90.1 MCH 31.3 MCHC 34.7 RDW 12.1 Plt Count 245 MPV 10.2 Immature Gran % (Auto) 0.3 Neut % (Auto) 73.2 H Lymph % (Auto) 19.2 L [place] % (Auto) 6.4 Eos % (Auto) 0.8 Baso % (Auto) 0.1 Lymph # (Auto) 1.7 [place] # (Auto) 0.6 Eos # (Auto) 0.1 Baso # (Auto) 0.0 Abs Immat Gran (auto) 0.03 Absolute Neuts (auto) 6.5 Absolute Nucleated RBC 0.000 Nucleated RBC % (auto) 0.0 Sodium 145 Potassium 4.0 Chloride 107 Carbon Dioxide 27 Anion Gap 15 BUN 8 L Creatinine 1.00 Estim Creat Clear Calc 122.5 Estimated GFR > 60 Random Glucose 116 H Calcium 8.8 D Total Bilirubin 0.6 AST 88 H ALT 105 H Alkaline Phosphatase 58 Total Protein 6.0 L Albumin 3.6 Preliminary micro results at discharge 02/24/21 08:40 Blood Culture - Preliminary Blood - Venous No growth after 48 hours. 02/24/21 08:30 Blood Culture - Preliminary Blood - Venous No growth after 48 hours. <Azul Bach NP - Last Filed: 02/28/21 17:53> Discharge Plan Discharge Anticipated Discharge Date/Time: 02/26/21 11:53 <Azul Bach NP - Last Filed: 02/28/21 17:53> Patient Disposition: Home, Self-Care <Azul Bach NP - Last Filed: 02/28/21 17:53> Discharge Diagnosis: Aspiration pneumonia Acute respiratory failure Septic Shock <Azul Bach NP - Last Filed: 02/28/21 17:53> Aspiration pneumonia Acute respiratory failure Septic Shock <José Jones MD - Last Filed: 04/02/21 08:37> Referrals: Physician,Unknown [Primary Care Provider] - 1 Week <Azul Bach NP - Last Filed: 02/28/21 17:53> Discharge Medications: New amoxicillin-pot clavulanate [Augmentin] 875-125 mg tablet 1 tab PO BID Qty: 14 RF: 0 Continued acetaminophen-codeine 300-30 mg tablet 1 tab PO Q6H PRN (Reason: Allergy Symptoms) RF: 0 loratadine 10 mg Tablet 10 mg PO DAILY PRN (Reason: Allergy Symptoms) RF: 0 atorvastatin 80 mg Tablet 80 mg PO BEDTIME Qty: 30 RF: 0 aspirin 81 mg Tablet,Delayed Release (Dr/Ec) 81 mg PO DAILY Qty: 30 RF: 0 amlodipine [Norvasc] 5 mg tablet 5 mg PO DAILY Qty: 30 RF: 0 Discontinued amoxicillin 500 mg capsule 2 cap PO BID RF: 0 <Azul Bach NP - Last Filed: 02/28/21 17:53> Discharge Orders: Discharge Order (Routine); Ordered 02/26/21 Ordered By: Azul Bach <Azul Bach NP - Last Filed: 02/28/21 17:53> Diet: advance to usual diet <Azul Bach NP - Last Filed: 02/28/21 17:53> advance to usual diet <José Jones MD - Last Filed: 04/02/21 08:37> Activity on Discharge: As tolerated <Azul Bach NP - Last Filed: 02/28/21 17:53> As tolerated <José Jones MD - Last Filed: 04/02/21 08:37> Stand Alone Forms: Patient Portal Discharge page <Azul Bach NP - Last Filed: 02/28/21 17:53> Care Plan Goals: resolution of pneumonia symptoms <Azul Bach NP - Last Filed: 02/28/21 17:53> Health Concerns: Aspiration pneumonia Septic shock Acute hypoxic respiratory failure <Azul Bach NP - Last Filed: 02/28/21 17:53> Plan of Treatment: continue antibiotics as prescribed Follow up with her primary care provider as needed <Azul Bach NP - Last Filed: 02/28/21 17:53> Assessment: see discharge summary I saw patient and discussed findings, management and disposotion with midlevel and I agree with above <Azul Bach NP - Last Filed: 02/28/21 17:53> Discharge Date/Time: 02/26/21 14:42 <Azul Bach NP - Last Filed: 02/28/21 17:53>
--- NOTE | 2021-02-26 12:06 | MHC.CM.PN ---
PT CLEARED TO DC HOME TODAY WITH ON SERVICES
--- NOTE | 2021-02-26 13:31 | PC.NURSE ---
Triple lumen removed per policy, catheter intact, no s/s of infection, patient given education.
--- NOTE | 2021-02-26 14:15 | P.EN_ITS ---
Event Note Date of Service: 02/26/21 Event Note: I saw and examined the patient and discuss findings, labs, meds, m anagement and disposition with RN and I agree with Dish[facility], except if otherwise stated.
== END 2021-02-26 14:42 | disposition home or self-care (01) | DRG 720 ==
LOC: HO.ED 07:16 → HO.EDOVER 08:28 → HO.ICU 08:29 → HO.IMC 02-25 09:36
PROVIDERS: Admitting Provider Internal Medicine Pulmonary Disease; Emergency Provider Emergency Medicine; Visit Provider Internal Medicine
DX: A41.9 Sepsis, unspecified organism (principal); J96.01 Acute respiratory failure with hypoxia; J69.0 Pneumonitis due to inhalation of food and vomit; R65.21 Severe sepsis with septic shock; G92 Toxic encephalopathy; E66.9 Obesity, unspecified; Z68.31 Body mass index [BMI] 31.0-31.9, adult; Z86.73 Personal history of transient ischemic attack (TIA), and cerebral infarction without residual deficits; N17.9 Acute kidney failure, unspecified; F17.210 Nicotine dependence, cigarettes, uncomplicated; Z88.5 Allergy status to narcotic agent; Z71.6 Tobacco abuse counseling; Z20.822 Contact with and (suspected) exposure to COVID-19; Z79.899 Other long term (current) drug therapy
CPT/HCPCS: 36415; 70450; 71045; 71250; 72125; 80048; 80053; 80076; 80307; 81001; 81003; 82077; 82803; 82947; 83605; 83690; 83735; 83880; 84100; 84484; 85025; 87040; 87086; 87635; 93005; 94002; 94003; 94799; 96361; 96365; 96366; 96367; 96375; 99283; 99291; 99292; C1758; J0295; J0330; J2250; J2543; J3370

== ENCOUNTER → 2021-03-17 11:02 | Outpatient (REF) | payer OTHER, SELFPAY | LOC: HO.SL 11:02 | PROVIDERS: PCP Internal Medicine; Visit Provider Internal Medicine | DX: R06.83 Snoring (principal); R53.82 Chronic fatigue, unspecified | CPT/HCPCS: 95806 ==

== ENCOUNTER 2022-08-24 14:47 | Outpatient (REF) | payer OTHER, SELFPAY ==
[2022-08-24 15:30] LABS: Hematocrit 45.6 % (42.0-52.0); Hemoglobin 15.7 g/dl (14.0-18.0); Mean Corpuscular HGB Conc 34.4 g/dl (31.0-36.0); Mean Corpuscular Hemoglobin 30.7 pg (27.0-33.0); Mean Corpuscular Volume 89.2 fL (80.0-98.0); Mean Platelet Volume 9.7 fL (9.4-12.4); Platelet Count 359 X10*3/uL (160-400); Red Blood Count 5.11 X10*6/uL (4.60-5.80); Red Cell Distribution Width 12.1 % (11.0-16.0); White Blood Count 8.6 X10*3/uL (4.8-10.8)
[2022-08-24 15:31] LABS: Appearance Urine Clear; Color Urine Yellow; Glucose Urine UA Negative (Negative); Leukocyte Esterase Urine Negative (Negative); Nitrite Urine Negative (Negative); Specific Gravity - Urine >= 1.030 (1.005-1.025); Urine Blood Negative (Negative); Urine Ketones Negative (Negative); Urine Protein Trace mg/dL (Neg-Trace)
[2022-08-24 15:54] LABS: Alanine Aminotransferase 36 U/L (0-40); Albumin Level 4.6 g/dL (3.5-5.0); Alkaline Phosphatase 70 U/L (39-117); Anion Gap 12 (12-20); Aspartate Amino Transferase 29 U/L (5-37); Bilirubin Total 0.6 mg/dL (0.0-1.0); Blood Urea Nitrogen 19 mg/dL (9-16); C Reactive Protein 6.41 mg/dL (< or = 0.50); Calcium 9.2 mg/dL (8.4-10.2); Carbon Dioxide 26 mmol/L (22-29); Chloride 106 mmol/L (96-108); Estimated Glomerular Filt Rate > 60; Glucose Random 103 mg/dL (60-115); Sodium 140 mmol/L (135-145); Total Protein 7.7 g/dL (6.5-8.0)
[2022-08-24 15:56] LABS: Atypical Lymph Absolute Manual 0.3 x10*3/uL; Atypical Lymphs Percent Manual 3 % (0-6); Eosinophils Absolute Manual 0.2 X10*3/uL (0.0-0.4); Eosinophils Percent Manual 2 % (0-4); Lymphocytes Absolute Manual 2.8 X10*3/uL (1.2-4.9); Lymphocytes Percent Manual 33 % (20-40); Monocytes Absolute Manual 0.9 X10*3/uL (0.1-1.2); Monocytes Percent Manual 10 % (2-11); Neutrophils Percent Manual 52 % (45-73)
[2022-08-24 15:57] LABS: Platelet Estimate NORMAL (NORMAL); Platelet Morphology Comment NORMAL; RBC Morphology NORMAL
[2022-08-24 15:58] LABS: Band Neutrophils Percent 0 % (3-5); Neutrophils Absolute Manual 4.5 X10*3/uL (2.0-8.3)
[2022-08-24 16:05] LABS: Erythrocyte Sedimentation Rate 34 MM/HR (0-15)
== END 2022-08-24 14:48 | disposition home or self-care (01) ==
LOC: HO.LAB 14:47
PROVIDERS: PCP Internal Medicine; Visit Provider Internal Medicine
DX: M54.9 Dorsalgia, unspecified (principal); I10 Essential (primary) hypertension; R21 Rash and other nonspecific skin eruption; N50.89 Other specified disorders of the male genital organs
CPT/HCPCS: 36415; 80053; 81003; 85007; 85027; 85652; 86140; 87086

== ENCOUNTER 2022-08-25 11:24 | Outpatient (REF) | payer OTHER, SELFPAY ==
--- NOTE | ~2022-08-25 | US_ITS ---
EXAMINATION: US SCROTUM CLINICAL INFORMATION: Right testicle swelling. COMPARISON: None TECHNIQUE: A sonogram of the scrotum was performed assessing ca-scale appearance and color Doppler flow. Spectral Doppler analysis of the arterial and venous flow were performed in the testes bilaterally. FINDINGS: RIGHT: Right testicle measures 4.5 x 2.8 x 4.0 cm, volume 26.5 mL. There appears to be slight heterogeneity of the parenchyma. No focal testicular parenchymal lesions are visualized. Spectral Doppler analysis of the arterial and venous flow is increased in the right testis. Right epididymal head is normal in size. There is a small complex hydrocele present. No right varicocele is seen. Right epididymal Doppler flow is normal. LEFT: Left testicle measures 4.5 x 2.4 x 3.2 cm, volume 18 mL. No focal testicular parenchymal lesions are visualized. Spectral Doppler analysis of the arterial and venous flow is normal in the left testis. Left epididymal head is normal in size. No left hydrocele or varicocele is seen. Left epididymal Doppler flow is mildly increased in the tail. US/US scrotum IMPRESSION: Findings consistent with possible right orchitis with hyperemia. No evidence of testicular torsion. Small complex right hydrocele.
--- NOTE | ~2022-08-25 | US_ITS ---
EXAMINATION: US RETROPERITONEAL LIMITED (RENAL ONLY) CLINICAL INFORMATION: Right flank pain. COMPARISON: None TECHNIQUE: Real-time imaging of the kidneys. FINDINGS: RIGHT KIDNEY: 11.7 x 5.1 x 6.0 cm (SAG x AP x TRV). The kidney is normal in size, contour, and echogenicity. Renal cortical thickness is normal. No renal calculi or hydronephrosis. A benign 1 cm parapelvic cyst is present which needs no additional imaging or follow-up. No solid renal masses. LEFT KIDNEY: 11.2 x 5.2 x 4.4 cm (SAG x AP x TRV). The kidney is normal in size, contour, and echogenicity. Renal cortical thickness is normal. No calculi or focal parenchymal lesions. No hydronephrosis. US/US renal BI IMPRESSION: Negative exam. A cause for the patient's right flank pain has not been found.
== END 2022-08-25 11:25 | disposition home or self-care (01) ==
LOC: HO.HMGCX 11:24
PROVIDERS: PCP Internal Medicine; Visit Provider Internal Medicine
DX: R07.82 Intercostal pain (principal); N49.2 Inflammatory disorders of scrotum
CPT/HCPCS: 76775; 76870

== ENCOUNTER 2025-03-30 08:56 | Outpatient (AMB) | payer OTHER, SELFPAY ==
[2025-03-30 09:05] VITALS: BP 132/80; PULSE 88; TEMP 36.6; O2SAT 98; BMI 35.4
--- NOTE | 2025-03-30 09:05 | MHC.PC.OV ---
Vital Signs 03/30/25 09:05 Height 5 ft 9 in Weight 240 lb BMI 35.4 BP 132/80 Blood Pressure Location Rt brachial Position Sitting Pulse 88 Pulse Source Pulse Oximeter Temp 98 F Temp Source Temporal Artery Scan Pulse Oximetry (%) 98 Oxygen Delivery Method Room Air Intake Visit Reasons: Annual / Dr Becerra Appliquer Required: No Accompanied by: Self / Same As Patient Allergies oxycodone (OXYCODONE) Allergy (Intermediate, Verified 03/30/25 09:07) itching Medication List - Last Reconciled 03/31/25 by RYAN Craig amlodipine 5 mg PO DAILY aspirin 81 mg PO DAILY aspirin (Adult Low Dose Aspirin) 81 mg PO DAILY atorvastatin (Lipitor) 80 mg PO BEDTIME Tobacco use date assessed: 03/30/25 Dental Screening Dental Screen Date: 03/30/25 Did you have a dental visit in the last 12 months?: Yes Did you have a dental problem in the last 6 months where you did not have access to dental care?: No HPI HPI Comments History of Present Illness Details The patient is a 45-year-old male presenting for a wellness visit and management of chronic conditions, to establish care. The patient has a history of a stroke at the age of 40, attributed to a patent foramen ovale (PFO) that did not close naturally. He reports no residual effects from the stroke and is currently managed on aspirin therapy. The patient is on atorvastatin 80mh for hyperlipidemia and amlodipine 5 mg for hypertension.His BP today was 132/80. He has not had recent lab work and agrees to have basic labs done to monitor these conditions. He needs refills on his medications. He reports a history of allergic rhinitis but notes improvement this year, with minimal need for Claritin. The patient has been experiencing chronic right knee pain due to osteoarthritis, exacerbated by his occupation which involves prolonged standing and walking on concrete. He is considering a knee replacement but is currently seeking a cortisone injection for symptomatic relief. He was seen by [facility] in the past and would like to go back. He underwent back surgery 12 years ago for a microdiscectomy at L5-S1 and reports occasional back discomfort, though the pain is not persistent. He would like to have his testosterone checked due to increased fatigue. He is working 3rd shift and helping to care for his 4 year old son. He has never had a colonoscopy. [facility] Medical History (Updated 03/31/25 @ 18:40 by RYAN Craig) Allergic rhinitis Arthritis Back injury Decreased visual acuity Fatigue Health care maintenance History of CVA (cerebrovascular accident) HTN (hypertension) Medial meniscus tear Obesity Right knee pain Surgical History History of orthopedic surgery Family History (Updated 03/30/25 @ 09:10 by Latanya Thakkar MA) Mother No problems noted. Father No problems noted. Social History Household Members: Spouse and Children Housing: House Do you presently have visiting nurse or other home services: No Patient Tobacco Use Status: Former Tobacco user Tobacco use type: Cigarette e-Cigarette/Vaping Use: Former Use Second Hand Smoke Exposure: No Substance Use Type: Marijuana service: No Current occupational status: employed Cognitive needs: No Hearing needs: No Vision needs: No Questionnaire PHQ-9 Over the last 2 weeks, how often have you been bothered by any of the following problems? 1. Little interest or pleasure in doing things: not at all 2. Feeling down, depressed, or hopeless: not at all 3. Trouble falling or staying asleep, or sleeping too much: not at all 4. Feeling tired or having little energy: not at all 5. Poor appetite or overeating: not at all 6. Feeling bad about yourself - or that you are a failure or have let yourself or your family down: not at all 7. Trouble concentrating on things, such as reading the newspaper or watching television: not at all 8. Moving or speaking so slowly that other people could have noticed. Or the opposite - being so fidgety or restless that you have been moving around a lot more than usual: not at all 9. Thoughts that you would be better off or of hurting yourself in some way: not at all Total score: 0 Source: Developed by Drs. Tony Maldonado, Patricia Miranda, Patrice Serrano and colleagues, with an educational martha from [employer]. Thrive Questionnaire Date Thrive assessed: 03/30/25 I am a: Patient Within the past 12 months, did the food you bought not last and you didn't have the money to get more?: Never true Within the past 12 months, did you worry whether your food would run out before you got money to buy more?: Never true Do you have trouble paying for medicines?: No Do you have trouble getting transportation to medical appointments?: No Do you have trouble paying your heating and electricity bill?: No Do you have trouble taking care of your child, family member or friend?: No Do you have trouble with day-to-day activities such as bathing, preparing meals, shopping, managing finances, etc.?: No Are you currently unemployed and looking for a job?: No Are you interested in more education?: No THRIVE Score: 0 AUDIT C Alcohol Use Questionnaire (AUDIT-C) 1. How often do you have a drink containing alcohol?: Monthly or less 2. How many drinks containing alcohol do you have on a typical day when you are drinking?: 1 or 2 3. How often do you have six or more drinks on one occasion?: Less than monthly Total Score: 2 DEE-7 AMB Questionnaire DEE-7 Date DEE - 7 assessed: 03/30/25 Feeling nervous, anxious, or on edge: 3 = Nearly every day (anxiety due to his mother passed and uncles this year) Not being able to stop or control worryin = Not at all Worrying too much about different things: 0 = Not at all Trouble relaxin = Not at all Being so restless that it is hard to sit still: 0 = Not at all Becoming easily annoyed or irritable: 0 = Not at all Feeling afraid as if something awful might happen: 0 = Not at all Total DEE-7 score (0-4 normal; 5-9 mild; 10-14 moderate; 15-21 severe): 3 Source: Developed by Drs. Tony Maldonado, Patricia Miranda, Patrice Serrano and colleagues, with an educational martha from [employer]. Review of Systems Const Details: CONSTITUTIONAL No Chills No Fever No Weight loss No fatigue No generalized weakness SKIN No itching No skin lesions EYES Decrease in visual acuity-Reports decreased night vision No eye pain No red eye HEAD AND NECK No dizziness No headache No neck pain EAR/NOSE/MOUTH/THROAT No earache No sinus pain No congestion No hoarseness No sore throat RESPIRATORY No cough No shortness of breath No wheezing CARDIOVASCULAR No chest pain No dyspnea No palpitations No peripheral edema No Syncope GASTROINTESTINAL No abdominal pain No constipation No diarrhea No heartburn No loss of appetite No nausea No vomiting GENITOURINARY No dysuria No hematuria No urinary frequency No urinary urgency ENDOCRINE No cold intolerance No excessive hunger No excessive thirst No change in hair texture MUSCULOSKELETAL No back pain Reports chronic right knee pain, occasional back discomfort No swelling No myalgias IMMUNOLOGICAL/ALLERGIC No congestion No itchy eyes No itchy nose No rhinitis No watery eyes HEMATOLOGIC No bleeding tendencies No bruising No fatigue LYMPHATIC No swollen lymph nodes NEUROLOGICAL Denies residual effects from stroke No memory loss No paresthesias No focal weakness PSYCHIATRIC No anxiety No depression No sleeping problems No substance abuse No suicidal ideation Physical exam (Primary Care) Vital Signs: Last Vital Signs Temp 98 F 03/30/25 09:05 Pulse 88 03/30/25 09:05 BP 132/80 03/30/25 09:05 Pulse Ox 98 03/30/25 09:05 Oxygen Delivery Method Room Air 03/30/25 09:05 BMI result Body Mass Index 35.4 GENERAL Well developed, obese, in no apparent distress HEENT Head-Normocephalic Eyes- PERRLA, EOMI, Conjuctiva clear, lids WNL Ears- Canals clear, TMs WNL Mouth/Throat-No lesions, no erythema, no exudate Neck- Supple, No lymphadenopathy, thyroid WNL RESPIRATORY Normal I:E, Clear to auscultation CARDIOVASCULAR Regular, rate and rhythm, No murmurs or rubs GASTROINTESTINAL Soft, nontender, normal bowel sounds, no masses MUSCULOSKELETAL Back-Normal ROM, Tender in Lumbar- mild, Tender with motion, Straight leg raise negative, DTR 2+ symmetrical, Gait normal Right knee- Full ROM, swelling noted, tender at joint line, DTR2+. NEUROLOGICAL Gait normal PSYCHIATRIC Oriented to person, place and time Mood and affect WNL Appearance WNL Speech WNL Thought processes WNL Tobacco/Smoking Status: Tobacco use Status Tobacco use date assessed 03/30/25 03/30/25 09:11 Patient Tobacco Use Status Former Tobacco user 03/30/25 09:11 Tobacco use type Cigarette 03/30/25 09:11 e-Cigarette/Vaping Use Former Use 03/30/25 09:11 PHQ-9: PHQ-9 Score PHQ-9: Total score 0 03/30/25 09:19 Thrive Assessment: Date of Thrive Assessment Date Thrive assessed 03/30/25 03/30/25 09:11 Coding Level of Care Code New Pt Tele New Pt Level 4 (42978) Patient Type New Diagnoses History of CVA (cerebrovascular accident) Z86.73 HTN (hypertension) I10 Hypertension type: unspecified Mixed hyperlipidemia E78.2 Hyperlipidemia type: mixed hyperlipidemia Other fatigue R53.83 Fatigue type: other Chronic pain of right knee M25.561; G89.29 Chronicity: chronic Decreased visual acuity H54.7 Allergic rhinitis J30.9 Health care maintenance Z00.00 Obesity E66.9 Time Spent (min) 35 Comment Time spent on chart review, H&P, Medication reconciliation, patient education and orders Assessment & Plan Assessment & Plan (1) History of CVA (cerebrovascular accident): Code(s): Z86.73 - Personal history of transient ischemic attack (TIA), and cerebral infarction without residual deficits Category: Medical Plan: The patient has a history of stroke at age 40, attributed to a patent foramen ovale (PFO). He is currently managed with aspirin therapy and reports no residual effects. (2) HTN (hypertension): Comment: BP today was 132/80 Code(s): I10 - Essential (primary) hypertension Category: Medical Qualifiers: Hypertension type: unspecified Qualified Code(s): I10 - Essential (primary) hypertension Plan: The patient is on amlodipine for hypertension and will have basic labs done. Patient will continue current medications. Will monitor. Patient will follow up in 6 months. (3) Hyperlipidemia: Code(s): E78.5 - Hyperlipidemia, unspecified Category: Medical Qualifiers: Hyperlipidemia type: mixed hyperlipidemia Qualified Code(s): E78.2 - Mixed hyperlipidemia Plan: The patient is on atorvastatin for hyperlipidemia and will have basic labs done to monitor lipid levels. Patient will continue current medications. Will monitor. Patient will follow up in 6 months. (4) Fatigue: Code(s): R53.83 - Other fatigue Category: Medical Qualifiers: Fatigue type: other Qualified Code(s): R53.83 - Other fatigue Plan: Will check Testosterone level at patients request. (5) Right knee pain: Code(s): M25.561 - Pain in right knee Category: Medical Qualifiers: Chronicity: chronic Qualified Code(s): M25.561 - Pain in right knee; G89.29 - Other chronic pain Plan: The patient reports chronic right knee pain due to osteoarthritis and is considering a knee replacement. Will refer to [facility]. (6) Decreased visual acuity: Code(s): H54.7 - Unspecified visual loss Category: Medical Plan: Will refer to Optometry. (7) Allergic rhinitis: Code(s): J30.9 - Allergic rhinitis, unspecified Category: Medical Plan: Patient is doing well without medication. Will Monitor. (8) Health care maintenance: Code(s): Z00.00 - Encounter for general adult medical examination without abnormal findings Category: Medical Plan: - Colon cancer screening: Patient agreed to undergo colonoscopy - Laboratory tests: Basic labs to monitor hyperlipidemia and hypertension - Testosterone levels: To be checked due to concerns about low energy (9) Obesity: Comment: BMI today was 35.4 Code(s): E66.9 - Obesity, unspecified Category: Medical Plan: Discussed the health risks of obesity with the patient. Reviewed benefits of even moderate weight loss with the patient. Patient will gradually try and increase exercise to 30-40 min 5-7 times per week. We discussed they may need to break the exercise up into 2-3 sessions daily due to knee pain. We discussed the patient adding more fruits and vegetables to their diet. Will monitor weight and follow up in 4 months. Plan During the visit, we discussed the patient's history of stroke and the management with aspirin therapy. We also reviewed his current medications for hyperlipidemia and hypertension, and the need for basic lab work to monitor these conditions. The patient expressed interest in undergoing a colonoscopy for colon cancer screening, which I recommended given his age. We also discussed his chronic knee pain due to osteoarthritis and the potential for a cortisone injection for relief. I advised him to follow up with an orthopedist for further management. Additionally, we talked about checking his testosterone levels due to concerns about low energy. I provided instructions for the lab tests and scheduled a follow-up appointment in four months to review the results and any necessary adjustments to his treatment plan. Orders: Orders Complete Blood Count Auto Diff 03/30/25 I10 - Essential (primary) hypertension, Z00.00 - Encounter for general adult medical examination without abnormal findings Comprehensive Met. Panel 03/30/25 E78.5 - Hyperlipidemia, unspecified, I10 - Essential (primary) hypertension, Z00.00 - Encounter for general adult medical examination without abnormal findings Lipid Panel 03/30/25 E78.5 - Hyperlipidemia, unspecified, I10 - Essential (primary) hypertension, Z00.00 - Encounter for general adult medical examination without abnormal findings TSH reflex Free T4 03/30/25 I10 - Essential (primary) hypertension, R53.83 - Other fatigue, Z00.00 - Encounter for general adult medical examination without abnormal findings Testosterone, Free/Total 03/30/25 R53.83 - Other fatigue Referrals Orthopedics Referral M25.561 - Pain in right knee Optometry Referral H54.7 - Unspecified visual loss Open Access Screening Colonoscopy Referral Z12.11 - Encounter for screening for malignant neoplasm of colon, Z12.12 - Encounter for screening for malignant neoplasm of rectum Medications: New amlodipine 5 mg PO DAILY 90 tabs 1RF for blood pressure aspirin (Adult Low Dose Aspirin) 81 mg PO DAILY 90 tabs 3RF atorvastatin (Lipitor) 80 mg PO BEDTIME 90 tabs 3RF for cholesterol Discontinued amoxicillin-pot clavulanate 875-125 mg (Augmentin) Discontinued Reason: Patient no longer taking 1 tab PO BID 14 tabs 0RF J69.0 - Pneumonitis due to inhalation of food and vomit atorvastatin Discontinued Reason: Doctor's Order 80 mg PO BEDTIME 30 tabs 0RF Patient Instructions: - Schedule and undergo a colonoscopy for colon cancer screening. - Follow up with an orthopedist for a cortisone injection for knee pain. - Complete lab work on the first floor before leaving today. - Schedule a follow-up appointment in four months unless contacted sooner.
--- OUTSIDE RECORDS SUMMARY | 2025-03-30 10:03 | XMS_ITS | Clinical Summary ---
Author Organization [facility] Address [address] [facility] [address] [place] [phone] Phone Care Team Providers Care Drafter Plumbing Name Role Phone Guy Becerra MD Primary Care Provider Allergies No known active allergies Medications No known medications Active Problems No known active problems Social History Tobacco Use Types Packs/Day Years Used Date Smoking Tobacco: Former Smokeless Tobacco: Never Alcohol Use Standard Drinks/Week Comments Yes 0 (1 standard drink = 0.6 oz pur e alcohol) On Occasion Education Answer Date Recorded Are you interested in more education? Not on rajinder e 11/18/2022 Are you concerned about learning? Not on file 11/18/2022 No 11/18/2022 No 11/18/2022 Digital Access Answer Date Recorded No 12/17/2022 No 12/17/2022 No 12/17/2022 Reliable internet access at home? Not on file 12/17/2022 Device with a working camera? Not on file Sex and Gender Information Value Date Recorded Sex Assigned at Not on file Legal Sex Male 8:07 PM EDT Gender Identity Not on file Sexual Orientation Not on file Last Filed Vital Signs Vital Sign Reading Time Taken Comments Blood Pressure 130/78 07/14/2021 11:26 AM EST Pulse 96 07/14/2021 11:26 AM EST Temperature 36.4 C (97.6 F) 07/14/2021 11:26 AM EST Respiratory Rate 18 07/14/2021 11:26 AM EST Oxygen Saturation 98% 07/14/2021 11:26 AM EST Inhaled Oxygen Concentration - - Weight 104.3 kg (230 lb) 07/14/2021 11:26 AM EST Height 175.3 cm (5' 9 ) 07/14/2021 11:26 AM EST Body Mass Index 33.97 07/14/2021 11:26 AM EST Plan of Treatment Health Maintenance Due Date Last Done Comments Adult Td,Tdap Booster 1978 LIPID PANEL 1978 DEPRESSION SCREENING 1990 SMOKING Hx and SMOKELESS TOB ACCO SCREENING 1991 HEPATITIS C SCREENING 02/13/1996 HIV ONE-TIME SCREENING (18-6 5 YEARS) 02/13/1996 COLOGUARD 2023 COLONOSCOPY 2023 COLORECTAL CANCER SCREENING 2023 FIT TEST 2023 FOBT 2023 SIGMOIDOSCOPY 2023 VIRTUAL COLONOSCOPY 2023 INFLUENZA VACCINE (#1) 2025 COVID-19 VACCINE ( - 2023-2 5 season) 2025 HEPATITIS A VACCINES Aged Out No long er eligible based on patient's age to complete this topic HIB VACCINES Aged Out No longer eligi ble based on patient's age to complete this topic MENINGOCOCCAL VACCINES (ACWY) Aged Out No longer eligible based on patient's age to complete this topic MENINGOCOCCAL VACCINES (B) Aged Out N o longer eligible based on patient's age to complete this topic PNEUMOCOCCAL VACCINES (0-49 years) Aged Out No longer eligible based on patient's age to complete this topic Medical Devices Not on file [facility] [employer] [facility] [employer] [facility] [employer] [facility] Member Subscriber Plan / Payer (Ef fective 2021-Present) Name:Luis Eduardo Alvarado Relation to Subscriber:Self Name:AngieLuis Eduardo barbour Payer ID:[id number] Group ID:[id number] Type:Medicaid Address: [place] [id number] [facility] Care Teams Drafter Plumbing Relationship Specialty Start Date End Date Guy Becerra MD [address] [place] [address] [place] [id number] PCP - General Internal Medicine 03/11/21 Additional Source Comments The information contained in this document represents components of the legal health record. It is not the complete legal health record.[facility]
--- OUTSIDE RECORDS SUMMARY | 2025-03-30 10:03 | XMS_ITS | Encounter Summary ---
Author Organization [facility] Address [address] [place] [address] [place] [phone] Phone Care Team Providers Care Termination Clerk Name Role Phone Guy Becerra MD Primary Care Provider Encounter Details Date Type Department Care Team (Late st Contact Info) Description 03/11/2021 Procedure Pass [facility], Ct Scan - [address] [id number] Social History Tobacco Use Types Packs/Day Years Used Date Smoking Tobacco: Former Smokeless Tobacco: Never Alcohol Use Standard Drinks/Week Comments Yes 0 (1 standard drink = 0.6 oz pur e alcohol) On Occasion Sex and Gender Information Value Date Recorded Sex Assigned at Not on file Legal Sex Male 8:07 PM EDT Gender Identity Not on file Sexual Orientation Not on file documented as of this encounter Functional Status * Calculated C-SSRS Risk Score (Lifetime/Recent) Answer Date of Assessment Author No Risk Indicated 03/11/2021 8:16 PM EDT Brandon Constantino RN * Laura Suicide Severity Rating Scale (Screener/Recent Self-Report) Question Answer Date of Assessment Author 1. Wish to be (Past 1 Month) No 021 8:16 PM EDT Brandon Constantino RN 2. Non-Specific Active Suici lauro Thoughts (Past 1 Month) No 03/11/2021 8:16 PM EDT Karri Constantino RN 6. Suicidal Behavior (Lifetime) No 8:16 PM EDT Brandon Constantino, RN documented as of this encounter Plan of Treatment Not on file documented as of this encounter Visit Diagnoses Not on filedocumented in this encounter Care Teams Termination Clerk Relationship Specialty Start Date End Date Guy Becerra MD [address] [place] [address] [place] [id number] PCP - General Internal Medicine 03/11/21 documented as of this encounter Additional Source Comments The information contained in this document represents components of the legal health record. It is not the complete legal health record.[facility]
== END 2025-03-30 09:38 | disposition home or self-care (01) ==
LOC: HO.HMCHD 08:57
PROVIDERS: PCP Internal Medicine; Visit Provider Physician Assistant Medical
DX: Z00.00 Encounter for general adult medical examination without abnormal findings (principal); R53.83 Other fatigue; M25.561 Pain in right knee; G89.29 Other chronic pain; Z86.73 Personal history of transient ischemic attack (TIA), and cerebral infarction without residual deficits; I10 Essential (primary) hypertension; E78.2 Mixed hyperlipidemia; H54.7 Unspecified visual loss; J30.9 Allergic rhinitis, unspecified; E66.9 Obesity, unspecified

== ENCOUNTER → 2025-03-30 08:56 | Outpatient (BNVA) | payer BC, SELFPAY | PROVIDERS: PCP Internal Medicine; Visit Provider Physician Assistant Medical | DX: Z13.31 Encounter for screening for depression (principal); Z13.39 Encounter for screening examination for other mental health and behavioral disorders | CPT/HCPCS: 96127 ==

== ENCOUNTER 2025-03-30 09:45 | Outpatient (REF) | payer BC, SELFPAY ==
[2025-03-30 12:55] LABS: MANUAL DIFF FLAG NO
[2025-03-30 13:10] LABS: Hematocrit 43.4 % (42.0-52.0); Hemoglobin 15.1 g/dl (14.0-18.0); Imm Gran Abs Auto 0.01 X10*3/uL (0.00-0.03); Imm Gran Pct Auto 0.1 % (0.0-0.4); Lymphocytes Absolute Auto 1.9 X10*3/uL (1.2-4.9); Mean Corpuscular HGB Conc 34.8 g/dl (31.0-36.0); Mean Corpuscular Hemoglobin 30.6 pg (27.0-33.0); Mean Corpuscular Volume 87.9 fL (80.0-98.0); NRBC Abs Auto 0.000 X10*3/uL (0.0-0.012); NRBC Pct Auto 0.0 /100WBC (0.0-0.2); Platelet Count 399 X10*3/uL (160-400); Red Blood Count 4.94 X10*6/uL (4.60-5.80); White Blood Count 7.3 X10*3/uL (4.8-10.8)
[2025-03-30 13:56] LABS: Alanine Aminotransferase 46 U/L (0-40); Albumin Level 4.9 g/dL (3.5-5.0); Alkaline Phosphatase 67 U/L (39-117); Anion Gap 14 (12-20); Aspartate Amino Transferase 37 U/L (5-37); Blood Urea Nitrogen 12 mg/dL (9-16); Calcium 9.4 mg/dL (8.4-10.2); Carbon Dioxide 26 mmol/L (22-29); Chloride 107 mmol/L (96-108); Cholesterol 167 mg/dL (<200); Estimated Glomerular Filt Rate > 60; HDL Cholesterol 69 mg/dL (>40); Potassium 4.1 mmol/L (3.3-5.1); Sodium 143 mmol/L (135-145); Total Protein 7.8 g/dL (6.5-8.0); Triglycerides 98 mg/dL (<150)
[2025-04-04 12:44] LABS: Testosterone, Free 75.9 pg/mL (35.0-155.0)
== END 2025-03-30 09:46 | disposition home or self-care (01) ==
LOC: HO.10HDL 09:45
PROVIDERS: Visit Provider Physician Assistant Medical
DX: Z00.00 Encounter for general adult medical examination without abnormal findings (principal); R53.83 Other fatigue; I10 Essential (primary) hypertension; E78.5 Hyperlipidemia, unspecified
CPT/HCPCS: 36415; 80053; 80061; 84402; 84403; 84443; 85025